=== PATIENT | male | born 1970 | race Caucasian/White ===

== ENCOUNTER 2016-08-17 10:24 | Emergency (ER) | payer BC, MEDICAID ==
[~2016-08-17] VITALS: Ht 165.1 cm; Wt 72.6 kg
[~2016-08-17 10:24] MED LIST: AMOX500C2 PO; NAPR-243 PO; TRM50T PO
--- OUTSIDE RECORDS SUMMARY | 2016-08-17 10:30 | XMS REPORT | Continuity of Care Document ---
Author Author [facility] Organization [facility] Address Unknown Phone Unavailable Allergies Active Description Code Type Severity Reaction Onset Reported/Identified Relationship to Patient Clinical Status Yes NKANo Known Allergies NKA Miscellaneous Allergy Mild N/A 01/19/2009 Medications Problems Date Dx Coded Attending Type Code Diagnosis Diagnosed By 01/19/2009 Ot 521.00 UNSPEC DENTAL CARIES 01/19/2009 Ot 525.9 06/10/2015 Ot 729.5 06/10/2015 NORMA NG MD Ot 786.50 06/10/2015 NORMA NG MD Ot 786.59 06/10/2015 SHAVON HINKLE MD Ot 785.1 06/10/2015 SHAVON HINKLE MD Ot 794.31 06/10/2015 NORMA NG MD Ot 786.50 06/10/2015 NORMA NG MD Ot 786.59 11/26/2015 Ot 729.5 PAIN IN LIMB 11/26/2015 NORMA NG MD Ot 786.50 CHEST PAIN NOS 11/26/2015 NORMA NG MD Ot 786.59 CHEST PAIN NEC 11/26/2015 SHAVON HINKLE MD Ot 785.1 PALPITATIONS 11/26/2015 SHAVON HINKLE MD Ot 794.31 ABNORM ELECTROCARDIOGRAM 11/26/2015 NORMA NG MD Ot 786.50 CHEST PAIN NOS 11/26/2015 NORMA NG MD Ot 786.59 CHEST PAIN NEC Procedures Results Encounters ACCT No. Visit Date/Time Discharge Status Pt. Type Provider Facility Loc./Unit Complaint [id number] 10/25/2013 07:53:00 2013 23:59:59 CLS Outpatient SHAVON HINKLE MD [facility] CARD [id number] 10/02/2013 13:52:00 2013 23:59:59 CLS Outpatient NORMA NG MD [facility] CARD [id number] 06/10/2015 11:41:00 Document Registration [id number] 03/30/2011 11:36:00 Document Registration
--- NOTE | 2016-08-17 10:54 | ED GI ---
General Chief Complaint: Abdominal/GI Problems Stated Complaint: ABD PAIN/KNOT Source of Information: Patient Exam Limitations: No Limitations History of Present Illness Time Seen By Provider: 10:53 Initial Comments To ER with firmness to the right side of the abdomen for 2 months. This began after he thought he strained his groin. This is been painful with stretching for the past week. He saw primary care for this and they believed it to be a strained abdominal muscle. Pain does not radiate anywhere. No nausea or vomiting. No difficulties with urination or bowel changes. Timing/Duration: 1-2 Days Severity/Quality: Moderate Radiation: No Radiation Activities at Onset: None Associated Symptoms: No Fever/Chills, No Nausea/Vomiting Allergies and Home Medications Allergies Coded Allergies: No Known Allergies (Unverified Allergy, Mild, 01/19/09) Home Medications Amoxicillin 500 Mg Capsule #40 1 EACH PO QID FOR INFECTION Prescribed by: KATINA BROWNE on 01/19/09 1147 Naproxen 500 Mg Tablet #30 1 EACH PO TID PRN FOR PAIN Prescribed by: KATINA BROWNE on 01/19/09 1147 Tramadol Hcl 50 Mg Tablet #20 1 TAB PO QID FOR PAIN Prescribed by: KATINA BROWNE on 01/19/09 1147 Review of Systems Constitutional: see HPINo chills, No fever EENTM: No Symptoms Reported Respiratory: No Symptoms Reported Cardiovascular: No Symptoms Reported Gastrointestinal: See HPI Abdominal PainDenies Constipated, Denies Diarrhea, NauseaDenies Vomiting Genitourinary: No Symptoms Reported Musculoskeletal: no symptoms reported Skin: no symptoms reported Psychiatric/Neurological: No Symptoms Reported Endocrine: No Symptoms Reported Hematologic/Lymphatic: No Symptoms Reported Past Kaqwfbu-Hqacox-Hwocry Hx Patient Social History Recent Foreign Travel: No Contact w/Someone Who Travel: No Physical Exam Vital Signs VS - Last 72 Hours, by Label 08/17/16 10:58 Temp 97.5 Pulse 82 Resp 16 B/P 137/112 Pulse Ox 98 O2 Delivery Room Air Capillary Refill : General Appearance: WD/WN no apparent distress HEENT: PERRL/EOMI normal ENT inspection Neck: non-tender full range of motion Respiratory: no respiratory distress no accessory muscle use Gastrointestinal: normal bowel sounds non tender soft Extremities: normal range of motion non-tender Neurologic/Psychiatric: alert normal mood/affect oriented x 3 Skin: normal color warm/dry Focused Exam Lactic Acid Level Laboratory Tests Test 08/17/16 10:50 Alanine Aminotransferase (ALT/SGPT) 17U/L (0-55) Albumin 3.9G/DL (3.2-4.5) Alkaline Phosphatase 103U/L (40-136) Anion Gap 10MMOL/L (5-14) Aspartate Amino Transf (AST/SGOT) 17U/L (5-34) BUN/Creatinine Ratio 14 Blood Urea Nitrogen 12MG/DL (7-18) Calcium Level 9.3MG/DL (8.5-10.1) Carbon Dioxide Level 24MMOL/L (21-32) Chloride Level 105MMOL/L (98-107) Creatinine 0.83MG/DL (0.60-1.30) Estimat Glomerular Filtration Rate > 60 Glucose Level 101MG/DL (70-105) Potassium Level 4.2MMOL/L (3.6-5.0) Sodium Level 139MMOL/L (135-145) Total Bilirubin 0.2MG/DL (0.1-1.0) Total Protein 7.0G/DL (6.4-8.2) Progress/Results/Core Measures Results/Orders Lab Results Laboratory Tests Test 08/17/16 10:50 Range/Units Alanine Aminotransferase (ALT/SGPT) 17 0-55 U/L Albumin 3.9 3.2-4.5 G/DL Alkaline Phosphatase 103 40-136 U/L Anion Gap 10 5-14 MMOL/L Aspartate Amino Transf (AST/SGOT) 17 5-34 U/L BUN/Creatinine Ratio 14 Basophils # (Auto) 0.0 0.0-0.1 10^3/uL Basophils (%) (Auto) 0 0-10 % Blood Urea Nitrogen 12 7-18 MG/DL Calcium Level 9.3 8.5-10.1 MG/DL Carbon Dioxide Level 24 21-32 MMOL/L Chloride Level 105 98-107 MMOL/L Creatinine 0.83 0.60-1.30 MG/DL Eosinophils # (Auto) 0.2 0.0-0.3 10^3/uL Eosinophils (%) (Auto) 2 0-10 % Estimat Glomerular Filtration Rate > 60 Glucose Level 101 70-105 MG/DL Hematocrit 46 40-54 % Hemoglobin 15.5 13.3-17.7 G/DL Lymphocytes # (Auto) 2.3 1.0-4.0 X 10^3 Lymphocytes (%) (Auto) 19 12-44 % Mean Corpuscular Hemoglobin 29 25-34 PG Mean Corpuscular Hemoglobin Concent 34 32-36 G/DL Mean Corpuscular Volume 85 80-99 FL Mean Platelet Volume 9.5 7.4-10.4 FL Monocytes # (Auto) 1.4 H 0.0-1.0 X 10^3 Monocytes (%) (Auto) 12 0-12 % Neutrophils # (Auto) 7.8 1.8-7.8 X 10^3 Neutrophils (%) (Auto) 66 42-75 % Platelet Count 330 130-400 10^3/uL Potassium Level 4.2 3.6-5.0 MMOL/L Red Blood Count 5.37 4.35-5.85 10^6/uL Red Cell Distribution Width 14.1 10.0-14.5 % Sodium Level 139 135-145 MMOL/L Total Bilirubin 0.2 0.1-1.0 MG/DL Total Protein 7.0 6.4-8.2 G/DL White Blood Count 11.7 H 4.3-11.0 10^3/uL My Orders Orders-MUKESH FLOREZ APRN Cbc With Automated Diff (08/17/16 10:52) Saline Lock/Iv-Start (08/17/16 10:52) Comprehensive Metabolic Panel (08/17/16 10:52) Ua Culture If Indicated (08/17/16 10:52) Ct Abdomen/Pelvis W (08/17/16 10:52) Iohexol Injection (Omnipaque 350 Mg/Ml 1 (08/17/16 11:00) Ns (Ivpb) (Sodium Chloride 0.9% Ivpb Bag (08/17/16 11:00) Medications Given in ED Current Medications Medications Dose Ordered Sig/Obdulia Route Start Time Stop Time Status Last Admin Dose Admin Iohexol 100 ml ONCE ONCE IV 08/17/16 11:00 08/17/16 11:01 DC 08/17/16 11:01 100 ML Sodium Chloride 80 ml ONCE ONCE IV 08/17/16 11:00 08/17/16 11:01 DC 08/17/16 11:02 80 ML Vital Signs/I&O Vital Sign - Last 12Hours 08/17/16 10:58 Temp 97.5 Pulse 82 Resp 16 B/P 137/112 Pulse Ox 98 O2 Delivery Room Air Diagnostic Imaging Diagonstic Imaging: CT Comments NAME: MARYLOU MELGOZA [facility] REC#: [id number] PT STATUS: REG ER : 1970 PHYSICIAN: MUKESH FLOREZ CHARGE OPERATOR ADMIT DATE: 08/17/16/ER Draft Date of Exam:08/17/16 CT ABDOMEN/PELVIS W PROCEDURE: CT abdomen and pelvis with contrast. TECHNIQUE: Multiple contiguous axial images were obtained through the abdomen and pelvis after administration of intravenous contrast. INDICATION: Right upper quadrant firmness and pain. COMPARISON: None FINDINGS: Included views of the lung bases are clear. CT abdomen: There is complex solid cystic mass replacing and expanding the right psoas muscle. The mass extends inferiorly into the iliopsoas muscle as well. The mass measures approximately 13.2 x 13.7 cm in axial dimension by 16.6 cm in CC dimension. Centrally, the mass is primarily cystic, but there is some heterogeneous mural soft tissue component. As a result, there is mass effect with displacement of the right colon and right kidney. There is no hydroureteronephrosis or other evidence of urinary tract obstruction. The kidneys otherwise have a normal appearance. Small bowel loops are nondistended. Normal appendix is identified. The adrenal glands, pancreas, spleen, and liver have a normal appearance as well. No abnormal mesenteric or retroperitoneal adenopathy is seen. There is no free fluid or free air. No loculated air-fluid collections are identified. Bony structures show no acute abnormalities. CT pelvis: Urinary bladder is unopacified. There is no loculated fluid collection, free fluid or free air within the pelvis. No abnormal lymph nodes are seen. Bony structures show no acute abnormalities. IMPRESSION: 1. Large complex solid cystic mass expanding and replacing the right psoas muscle. 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 2. Other less likely considerations include a large retroperitoneal hematoma or abscess. Dictated on workstation # [id number] Dict: 08/17/16 1113 Trans: 08/17/16 1127 [id number] Interpreted by: BELTRAN MCNAMARA Electronically signed by: Departure Communication Progress Notes 1200-I spoken with Dr. Sprague, surgeon on-call at [facility]. He agrees to accept the patient. Currently we are waiting on bed assignment. Patient will be transferred by EMS. Patient requests to go home and complete some chores around his house and drive himself up there later this evening however this would not be efficient and would cancel transfer arrangements and I did relay this to the patient. He states he will make some phone calls and let me know what his decision is. I also updated the patient's mother per the patient's request via the patient's phone on our differential diagnoses of this mass. Impression Impression: Primary Impression: Right lower quadrant abdominal mass Disposition: XFER SHT-TRM HOSP Condition: Stable Departure-Patient Inst. Decision time for Depature: 11:33 Referrals: NO,LOCAL PHYSICIAN (PCP/Family) Primary Care Physician MUKESH FLOREZ APRN Aug 17, 2016 10:54
[2016-08-17] MEDS ORDERED: NS 100 ML (IVPB) BAG IV ONE (11:00)
[2016-08-17] MEDS ORDERED: IOHEXOL 350 MG/ML 100 ML (OMNIPAQUE 350) VIAL IV ONE (11:00)
[2016-08-17 11:01] LABS: BASOPHILS % (AUTO) 0 % (0-10); EOSINOPHILS # (AUTO) 0.2 10^3/uL (0.0-0.3); EOSINOPHILS % (AUTO) 2 % (0-10); LYMPHOCYTES # (AUTO) 2.3 X 10^3 (1.0-4.0); LYMPHOCYTES % (AUTO) 19 % (12-44); MEAN CORPUSCULAR HEMOGLOBIN 29 PG (25-34); MEAN CORPUSCULAR HGB CONC 34 G/DL (32-36); MEAN CORPUSCULAR VOLUME 85 FL (80-99); MEAN PLATELET VOLUME 9.5 FL (7.4-10.4); MONOCYTES # (AUTO) 1.4 X 10^3 (0.0-1.0); MONOCYTES % (AUTO) 12 % (0-12); NEUTROPHILS # (AUTO) 7.8 X 10^3 (1.8-7.8); NEUTROPHILS % (AUTO) 66 % (42-75); PLATELET COUNT 330 10^3/uL (130-400); RED BLOOD COUNT 5.37 10^6/uL (4.35-5.85); RED CELL DISTRIBUTION WIDTH 14.1 % (10.0-14.5); WHITE BLOOD COUNT 11.7 10^3/uL (4.3-11.0)
[2016-08-17 11:19] LABS: ALANINE AMINOTRANSFERASE 17 U/L (0-55); ALBUMIN 3.9 G/DL (3.2-4.5); ANION GAP 10 MMOL/L (5-14); ASPARTATE AMINO TRANSFERASE 17 U/L (5-34); BILIRUBIN,TOTAL 0.2 MG/DL (0.1-1.0); BLOOD UREA NITROGEN 12 MG/DL (7-18); BUN/CREATININE RATIO 14; CALCIUM 9.3 MG/DL (8.5-10.1); CARBON DIOXIDE 24 MMOL/L (21-32); CHLORIDE 105 MMOL/L (98-107); CREATININE SERUM 0.83 MG/DL (0.60-1.30); GFR ESTIMATED > 60; GLUCOSE 101 MG/DL (70-105); POTASSIUM 4.2 MMOL/L (3.6-5.0); SODIUM 139 MMOL/L (135-145)
--- NOTE | 2016-08-17 11:28 | Diagnostic Imaging Report ---
PROCEDURE: CT abdomen and pelvis with contrast. TECHNIQUE: Multiple contiguous axial images were obtained through the abdomen and pelvis after administration of intravenous contrast. INDICATION: Right upper quadrant firmness and pain. COMPARISON: None FINDINGS: Included views of the lung bases are clear. CT abdomen: There is complex solid cystic mass replacing and expanding the right psoas muscle. The mass extends inferiorly into the iliopsoas muscle as well. The mass measures approximately 13.2 x 13.7 cm in axial dimension by 16.6 cm in CC dimension. Centrally, the mass is primarily cystic, but there is some heterogeneous mural soft tissue component. As a result, there is mass effect with displacement of the right colon and right kidney. There is no hydroureteronephrosis or other evidence of urinary tract obstruction. The kidneys otherwise have a normal appearance. Small bowel loops are nondistended. Normal appendix is identified. The adrenal glands, pancreas, spleen, and liver have a normal appearance as well. No abnormal mesenteric or retroperitoneal adenopathy is seen. There is no free fluid or free air. No loculated air-fluid collections are identified. Bony structures show no acute abnormalities. CT pelvis: Urinary bladder is unopacified. There is no loculated fluid collection, free fluid or free air within the pelvis. No abnormal lymph nodes are seen. Bony structures show no acute abnormalities. IMPRESSION: 1. Large complex solid cystic mass expanding and replacing the right psoas muscle. 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 Other less likely considerations include a large retroperitoneal hematoma or abscess. Dictated by: Dictated on workstation # [id number]
[2016-08-17 15:30] VITALS: BP 128/90
== END 2016-08-17 15:30 | disposition short-term general hospital (02) ==
LOC: EDUNIT# 10:24 → ER 10:26
DX: R19.03 Right lower quadrant abdominal swelling, mass and lump (principal)
CPT/HCPCS: 36415; 74177; 80053; 85025

== ENCOUNTER 2016-11-07 12:22 | Emergency (ER) | payer MEDICAID ==
[~2016-11-07] VITALS: Ht 175.3 cm; Wt 86.2 kg
--- NOTE | 2016-11-07 12:40 | ED Back Pain ---
General Chief Complaint: Back Problems Stated Complaint: R SIDE SCIATIC NERVE PAIN Nursing Triage Note: C/O LOW BACK AND HIP PAIN Nursing Sepsis Screen: No Definite Risk Source of Information: Patient Exam Limitations: No Limitations History of Present Illness Time Seen by Provider: 12:38 Initial Comments Patient complains of right lower back pain radiating down right leg for the past several days. He has a history of sciatica and this feels similar. 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 He states he is having none of the symptoms experienced then. He denies fevers chills or incontinence. Allergies and Home Medications Allergies Coded Allergies: No Known Allergies (Unverified Allergy, Mild, 01/19/09) Home Medications No Active Prescriptions or Reported Meds Constitutional: no symptoms reported Respiratory: no symptoms reported Cardiovascular: no symptoms reported Gastrointestinal: No abdominal pain Genitourinary: No incontinence Musculoskeletal: back pain All Other Systems Reviewed Negative Unless Noted: Yes Past Jejdeih-Tgyult-Afpreq Hx Patient Social History Alcohol Use: Denies Use Recreational Drug Use: No Smoking Status: Never a Smoker Recent Foreign Travel: No Contact w/Someone Who Travel: No Recent Infectious Disease Expo: No Recent Hopitalizations: No Surgeries HX Surgeries: Yes (right inguinal repair) Surgeries: Abdominal Respiratory Hx Respiratory Disorders: No Cardiovascular Hx Cardiac Disorders: No Neurological Hx Neurological Disorders: No Reproductive System Hx Reproductive Disorders: No Genitourinary Hx Genitourinary Disorders: No Gastrointestinal Hx Gastrointestinal Disorders: No Musculoskeletal Hx Musculoskeletal Disorders: No Endocrine Hx Endocrine Disorders: No HEENT HX ENT Disorders: No Cancer Hx Cancer: No Psychosocial Hx Psychiatric Problems: No Integumentary HX Skin/Integumentary Disorder: No Blood Transfusions Hx Blood Disorders: No Reviewed Nursing Assessment Reviewed/Agree w Nursing PMH: Yes Physical Exam Vital Signs Vital Sign - Last 12Hours 11/07/16 12:25 Temp 98.1 Pulse 76 Resp 18 B/P (MAP) 179/112 Pulse Ox 96 O2 Delivery Room Air Capillary Refill : Less Than 3 Seconds General Appearance: WD/WN, Mild Distress Neck: Supple Cardiovascular: Regular Rate, Rhythm Respiratory: Lungs Clear Gastrointestinal: Soft Back: Normal Inspection Neurologic/Psychiatric: Alert, No Motor/Sensory Deficits, No Sensory Deficit, Other (toe dorsiflexion is 5 out of 5 bilaterally.) Skin: Normal Color, Warm/Dry Progress/Results/Core Measures Results/Orders My Orders Orders - BRIAN JENSEN MD Dexamethasone Injection (Decadron Inject (11/07/16 12:45) Cyclobenzaprine Tablet (Flexeril Tablet) (11/07/16 12:45) Vital Signs/I&O Vital Sign - Last 12Hours 11/07/16 12:25 Temp 98.1 Pulse 76 Resp 18 B/P (MAP) 179/112 Pulse Ox 96 O2 Delivery Room Air Blood Pressure Mean: 134 Departure Impression Impression: Primary Impression: Sciatica of right side Disposition: HOME, SELF-CARE Condition: Stable Departure-Patient Inst. Decision time for Depature: 12:39 Referrals: NO,LOCAL PHYSICIAN (PCP/Family) Primary Care Physician Patient Instructions: Sciatica (DC) Scripts Cyclobenzaprine HCl (Cyclobenzaprine HCl) 10 Mg Tablet 10 MG PO TID Y for SPASMS, #14 TAB Prov: BRIAN JENSEN MD 11/07/16 Diclofenac Sodium (Diclofenac Sodium) 50 Mg Tablet.dr 50 MG PO BID, #10 TAB Prov: BRIAN JENSEN MD 11/07/16 Methylprednisolone (Medrol) 4 Mg Tab.ds.pk 4 MG PO UD, #1 PKG Prov: BRIAN JENSEN MD 11/07/16 BRIAN JENSEN MD Nov 07, 2016 12:40
[2016-11-07] MEDS ORDERED: DICL50TA6 PO (12:43)
[2016-11-07] MEDS ORDERED: CYCL10TA9 PO (12:43)
[2016-11-07] MEDS ORDERED: METH4TAB PO (12:43)
[2016-11-07] MEDS ORDERED: DEXAMETHASONE 4 MG/ML SDV (DECADRON) IM ONE (12:45)
[2016-11-07] MEDS ORDERED: CYCLOBENZAPRINE 10 MG (FLEXERIL) TAB PO SCH (12:45)
[2016-11-07 12:51] VITALS: BP 179/100
== END 2016-11-07 12:49 | disposition home or self-care (01) ==
LOC: EDUNIT# 12:22 → ER 12:24
DX: M54.31 Sciatica, right side (principal)
CPT/HCPCS: 99281

== ENCOUNTER 2016-12-07 04:22 | Emergency (ER) | payer MEDICAID ==
[~2016-12-07] VITALS: Ht 175.3 cm; Wt 85.7 kg
[~2016-12-07 04:22] MED LIST changes: +CYCL10TA9 PO; +DICL50TA6 PO; +METH4TAB PO
[2016-12-07] MEDS ORDERED: OXYC15TA79 (04:41)
[2016-12-07] MEDS ORDERED: DEXA4TAB (04:41)
[2016-12-07] MEDS ORDERED: ONDA8TAB12 (04:41)
[2016-12-07] MEDS ORDERED: PROC-1 PO (04:41)
[2016-12-07] MEDS ORDERED: IOHEXOL 350 MG/ML 100 ML (OMNIPAQUE 350) VIAL IV ONE (05:15)
[2016-12-07] MEDS ORDERED: NS 100 ML (IVPB) BAG IV ONE (05:15)
[2016-12-07 05:16] LABS: BILIRUBIN,URINE NEGATIVE (NEGATIVE); KETONES,URINE NEGATIVE (NEGATIVE); LEUKOCYTE ESTERASE ,URINE 1+ (NEGATIVE); NITRITE,URINE NEGATIVE (NEGATIVE); PH,URINE 5 (5-9); PROTEIN,URINE 2+ (NEGATIVE); UROBILINOGEN,URINE NORMAL (NORMAL)
[2016-12-07 05:17] LABS: BASOPHILS % (AUTO) 0 % (0-10); EOSINOPHILS # (AUTO) 0.1 10^3/uL (0.0-0.3); EOSINOPHILS % (AUTO) 1 % (0-10); LYMPHOCYTES % (AUTO) 9 % (12-44); MEAN CORPUSCULAR HEMOGLOBIN 27 PG (25-34); MEAN CORPUSCULAR HGB CONC 34 G/DL (32-36); MEAN CORPUSCULAR VOLUME 80 FL (80-99); MONOCYTES # (AUTO) 0.1 X 10^3 (0.0-1.0); MONOCYTES % (AUTO) 1 % (0-12); NEUTROPHILS # (AUTO) 10.2 X 10^3 (1.8-7.8); NEUTROPHILS % (AUTO) 89 % (42-75); PLATELET COUNT 332 10^3/uL (130-400); RED CELL DISTRIBUTION WIDTH 13.3 % (10.0-14.5); WHITE BLOOD COUNT 11.4 10^3/uL (4.3-11.0)
[2016-12-07 05:25] LABS: SQUAMOUS EPITHELIAL CELL,UR 0-2 /HPF
[2016-12-07 05:25] LABS: PROTHROMBIN TIME PATIENT 13.3 SEC (12.2-14.7)
--- NOTE | 2016-12-07 05:31 | ED Abdominal Pain ---
General Chief Complaint: Abdominal/GI Problems Stated Complaint: ABD PAIN Nursing Triage Note: INTERMITTANT RUQ ABDOMINAL PAIN X1 WEEK Sepsis Screen: No Definite Risk Source of Information: Patient, Family (MOM--JUST MOVED HERE FROM [place] 3 DAYS AGO TO STAY WITH HIM) History of Present Illness Time Seen By Provider: 04:50 Initial Comments PT ARRIVES VIA POV FROM HOME PT WAS DX WITH SARCOMA AND HAD SURGERY ON 08/23/16 AT --HAD RIGHT NEPHRECTOMY , PSOAS MUSCLE REMOVED, APPY, LYMPH NODES REMOVED PT HAD CT SCAN DONE 2 WEEKS AGO WHICH SHOWED RECURRENCE AND METS TO LIVER "AND OTHER PLACES" PT HAD CHEMO ( HIS FIRST AND ONLY CHEMO ) LAST Tuesday11/30/16 AND IS TO HAVE CHEMO AGAIN TOMORROW AT , AND IS ALSO TO SEE SURGEON TOMORROW WELL. PT STATES HE HAD OPTED NOT TO DO CHEMO OR RADIATION INITIALLY, UNTIL IT WAS DISCOVERED THAT IT HAD RECURRED. PT HAS HAD RIGHT SIDED ABDOMINAL PAIN FOR SEVERAL MONTHS DUE TO THIS TUMOR, WAS BETTER AFTER THE SURGERY, BUT FOR THE LAST WEEK HAS HAD INCREASING PAIN ON THE RIGHT SIDE, AND HAVING SEVERE PAIN UNDER RIGHT RIBS, AND PAIN WITH BENDING TO THE RIGHT AND WITH TAKING A DEEP BREATH TONIGHT, THE PAIN WAS SEVERE, AND NOT RELIEVED WITH OXYCODONE--LAST DOSE WAS AT MIDNIGHT-- 15 MG. STATES HE TAKES IS EVERY 4 HOURS NEEDED NO NAUSEA/VOMITING, BUT HAS NOT HAD AN APPETITE--ONLY EATING ONE SANDWICH A DAY HAS ONGOING CONSTIPATION--LAST BM WAS A COUPLE OF DAYS AGO, AND HAS TO STRAIN AND ONLY PASSING HARD, SMALL TINO NO FEVER NO URINARY SYMPTOMS NO PCP ANYWHERE ONLY GOES TO ONCOLOGY AT Allergies and Home Medications Allergies Coded Allergies: NKANo Known Allergies (Unverified Allergy, Mild, 01/19/09) Home Medications Dexamethasone 4 Mg Tablet, #36 (Reported) Hydrocodone/Acetaminophen 1 Each Tablet, 1 EACH PO Q4H, #20 Prescribed by: KATINA BROWNE on 12/07/16 0647 Ondansetron HCl 8 Mg Tablet, #30 (Reported) Oxycodone HCl 15 Mg Tablet, #180 (Reported) Prochlorperazine Maleate 10 Mg Tablet, Unknown Dose PO, (Reported) Review of Systems Constitutional: other (DECREASED APPETITE) EENTM: No Symptoms Reported Respiratory: Denies Cough, Denies Orthopnea, Denies Shortness of Air, Other ( HURTS UNDER RIGHT RIB CAGE TO TAKE A DEEP BREATH) Cardiovascular: See HPI Gastrointestinal: See HPI, Abdominal Pain, Constipated, Denies Diarrhea, Denies Nausea, Poor Appetite, Denies Poor Fluid Intake, Denies Vomiting Genitourinary: No Symptoms Reported Musculoskeletal: see HPI Skin: no symptoms reported Psychiatric/Neurological: No Symptoms Reported Endocrine: No Symptoms Reported Hematologic/Lymphatic: See HPI Past Osvvpnb-Wwoulc-Qeseiy Hx Patient Social History Alcohol Use: Denies Use Recreational Drug Use: No Smoking Status: Never a Smoker 2nd Hand Smoke Exposure: No Recent Foreign Travel: No Contact w/Someone Who Travel: No Recent Infectious Disease Expo: No Recent Hopitalizations: No Immunizations Up To Date Tetanus Booster (TDap): Less than 5yrs Seasonal Allergies Seasonal Allergies: Yes Surgeries HX Surgeries: Yes (RIGHT NEPHRECTOMY/APPY/PSOAS MUSCLE REMOVED AND LYMPH NODES REMOVED AT 08/23/16 FOR SARCOMA. PORT RIGHT CHEST) Surgeries: Abdominal, Appendectomy, Nephrectomy Respiratory Hx Respiratory Disorders: No Cardiovascular Hx Cardiac Disorders: No Neurological Hx Neurological Disorders: No Reproductive System Hx Reproductive Disorders: No Genitourinary Hx 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) Gastrointestinal Hx Gastrointestinal Disorders: Yes (SARCOMA IN ABDOMEN) Musculoskeletal Hx 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) Endocrine Hx Endocrine Disorders: No HEENT HX ENT Disorders: No Cancer Hx Cancer: Yes (SARCOMA--RIGHT PSOAS, RIGHT KIDNEY, LIVER, LYMPH NODES) Psychosocial Hx Psychiatric Problems: No Integumentary HX Skin/Integumentary Disorder: No Blood Transfusions Hx Blood Disorders: No Physical Exam Vital Signs VS - Last 72 Hours, by Label 12/07/16 12/07/16 04:41 06:53 Temp 96.4 96.4 Pulse 120 88 Resp 18 18 B/P (MAP) 115/99 Pulse Ox 97 98 O2 Delivery Room Air Room Air Capillary Refill : Less Than 3 Seconds General Appearance: no apparent distress (BUT LOOKS UNCOMFORTABLE/IN PAIN -- TAKING SHORT, SHALLOW BREATHS), other (MOVES AND CHANGES POSITIONS SLOWLY DUE TO PAIN ), thin HEENT: PERRL/EOMI Neck: normal inspection Respiratory: normal breath sounds, no respiratory distress, no accessory muscle use Cardiovascular: regular rate, rhythm, no edema, no JVD, no murmur Gastrointestinal: abnormal bowel sounds (DECREASED), tenderness (DIFFUSE RIGHT SIDED TENDERNESS, AND SUPRAPUBIC TENDERNESS), mass (VERY LARGE, FIRM MASS TO MID AND LOWER RIGHT ABDOMEN AND SUPRAPUBIC AREA) Extremities: normal inspection, no pedal edema, normal capillary refill Back: no vertebral tenderness, CVA tenderness (R) (WITH FULLNESS/MASS IN RIGHT FLANK AREA) Neurologic/Psychiatric: cfa II-XII nml as tested, no motor/sensory deficits, alert, oriented x 3 Skin: warm/dry, pallor, other (SALLOW) Progress/Results/Core Measures Results/Orders Lab Results Laboratory Tests Test 12/07/16 05:05 12/07/16 05:10 Range/Units White Blood Count 11.4 H 4.3-11.0 10^3/uL Red Blood Count 5.30 4.35-5.85 10^6/uL Hemoglobin 14.5 13.3-17.7 G/DL Hematocrit 43 40-54 % Mean Corpuscular Volume 80 80-99 FL Mean Corpuscular Hemoglobin 27 25-34 PG Mean Corpuscular Hemoglobin Concent 34 32-36 G/DL Red Cell Distribution Width 13.3 10.0-14.5 % Platelet Count 332 130-400 10^3/uL Mean Platelet Volume 9.0 7.4-10.4 FL Neutrophils (%) (Auto) 89 H 42-75 % Lymphocytes (%) (Auto) 9 L 12-44 % Monocytes (%) (Auto) 1 0-12 % Eosinophils (%) (Auto) 1 0-10 % Basophils (%) (Auto) 0 0-10 % Neutrophils # (Auto) 10.2 H 1.8-7.8 X 10^3 Lymphocytes # (Auto) 1.0 1.0-4.0 X 10^3 Monocytes # (Auto) 0.1 0.0-1.0 X 10^3 Eosinophils # (Auto) 0.1 0.0-0.3 10^3/uL Basophils # (Auto) 0.0 0.0-0.1 10^3/uL Prothrombin Time 13.3 12.2-14.7 SEC INR Comment 1.0 0.8-1.4 Activated Partial Thromboplast Time 28 24-35 SEC Sodium Level 133 L 135-145 MMOL/L Potassium Level 4.6 3.6-5.0 MMOL/L Chloride Level 96 L 98-107 MMOL/L Carbon Dioxide Level 26 21-32 MMOL/L Anion Gap 11 5-14 MMOL/L Blood Urea Nitrogen 20 H 7-18 MG/DL Creatinine 1.08 0.60-1.30 MG/DL Estimat Glomerular Filtration Rate > 60 BUN/Creatinine Ratio 19 Glucose Level 134 H 70-105 MG/DL Calcium Level 9.7 8.5-10.1 MG/DL Magnesium Level 2.0 1.8-2.4 MG/DL Total Bilirubin 0.5 0.1-1.0 MG/DL Aspartate Amino Transf (AST/SGOT) 14 5-34 U/L Alanine Aminotransferase (ALT/SGPT) 14 0-55 U/L Alkaline Phosphatase 111 40-136 U/L Total Protein 7.3 6.4-8.2 GM/DL Albumin 3.6 3.2-4.5 GM/DL Amylase Level 18 L 25-125 U/L Lipase < 4 L 8-78 U/L Urine Color YELLOW Urine Clarity CLEAR Urine pH 5 5-9 Urine Specific [place] 1.020 1.016-1.022 Urine Protein 2+ H NEGATIVE Urine Glucose (UA) NEGATIVE NEGATIVE Urine Ketones NEGATIVE NEGATIVE Urine Nitrite NEGATIVE NEGATIVE Urine Bilirubin NEGATIVE NEGATIVE Urine Urobilinogen NORMAL NORMAL MG/DL Urine Leukocyte Esterase 1+ H NEGATIVE Urine RBC (Auto) 1+ H NEGATIVE Urine RBC RARE /HPF Urine WBC NONE /HPF Urine Squamous Epithelial Cells 0-2 /HPF Urine Crystals NONE /LPF Urine Bacteria NEGATIVE /HPF Urine Casts NONE /LPF Urine Mucus NEGATIVE /LPF Urine Culture Indicated NO My Orders Orders - KATINA BROWNE DO Saline Lock/Iv-Start (12/07/16 04:59) Monitor-Rhythm Ecg Trace Only (12/07/16 04:59) Amylase (12/07/16 04:59) Cbc With Automated Diff (12/07/16 04:59) Comprehensive Metabolic Panel (12/07/16 04:59) Lipase (12/07/16 04:59) Magnesium (12/07/16 04:59) Protime With Inr (12/07/16 04:59) Partial Thromboplastin Time (12/07/16 04:59) Ua Culture If Indicated (12/07/16 04:59) Acute Abd Series (12/07/16 04:59) Saline Lock/Iv-Start (12/07/16 04:59) Iohexol Injection (Omnipaque 350 Mg/Ml 1 (12/07/16 05:15) Ns (Ivpb) (Sodium Chloride 0.9% Ivpb Bag (12/07/16 05:15) Fentanyl Injection (Sublimaze Injection (12/07/16 05:34) Ct Chest/Abdomen/Pelvis Wo (12/07/16 04:59) Morphine Injection (Morphine Injection (12/07/16 06:37) Vital Signs/I&O Vital Sign - Last 12Hours 12/07/16 12/07/16 04:41 06:53 Temp 96.4 96.4 Pulse 120 88 Resp 18 18 B/P (MAP) 115/99 Pulse Ox 97 98 O2 Delivery Room Air Room Air Blood Pressure Mean: 104 Progress Note : Progress Note PAIN EASED SOME AT DISMISSAL Diagnostic Imaging Comments CT CHEST / ABDOMEN /PELVIS--LARGE MASS IN RIGHT RETROPERITONEUM WITH POORLY DIFFERENTIATED BORDER WITH CYSTIC AND SOLID COMPONENTS, EXTENDING FROM LEVEL OF DIAPHRAGM ALL THE WAY TO RIGHT ACETABULUM--14 X 15 CM--METASTASIS VS RECURRENCE , WITH LOCAL INVASION OF RIGHT PSOAS AND ILIOPSOAS MUSCLES AND INFERIOR BORDER OF RIGHT LOBE OF LIVER--PER [facility] VIA FAX @ [phone] Reviewed: Reviewed by Me Departure Impression Impression: 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 Referrals: NO,LOCAL PHYSICIAN (PCP/Family) Primary Care Physician Patient Instructions: Cancer Pain Syndromes (DC), Soft Tissue Sarcoma, Adult ( DC) Add. Discharge Instructions: CONTINUE YOUR REGULAR MEDICATIONS PRESCRIBED KEEP YOUR APPOINTMENTS AT THIS WEEK TAKE MIRALAX DAILY FOR CONSTIPATION All discharge instructions reviewed with patient and/or family. Voiced understanding. Scripts Hydrocodone/Acetaminophen (Hydrocodon-Acetaminophn 10-325) 1 Each Tablet 1 EACH PO Q4H, #20 TAB Prov: KATINA BROWNE DO 12/07/16 KATINA BROWNE DO Dec 07, 2016 5:31 am
[2016-12-07] MEDS ORDERED: fentaNYL INJECTION 100 MCG/2 ML AMP IVP STA (05:34)
[2016-12-07 05:37] LABS: ALANINE AMINOTRANSFERASE 14 U/L (0-55); ALBUMIN 3.6 GM/DL (3.2-4.5); AMYLASE 18 U/L (25-125); ANION GAP 11 MMOL/L (5-14); ASPARTATE AMINO TRANSFERASE 14 U/L (5-34); BILIRUBIN,TOTAL 0.5 MG/DL (0.1-1.0); BLOOD UREA NITROGEN 20 MG/DL (7-18); BUN/CREATININE RATIO 19; CALCIUM 9.7 MG/DL (8.5-10.1); CARBON DIOXIDE 26 MMOL/L (21-32); CHLORIDE 96 MMOL/L (98-107); CREATININE SERUM 1.08 MG/DL (0.60-1.30); GFR ESTIMATED > 60; GLUCOSE 134 MG/DL (70-105); LIPASE < 4 U/L (8-78); POTASSIUM 4.6 MMOL/L (3.6-5.0); SODIUM 133 MMOL/L (135-145); TOTAL PROTEIN 7.3 GM/DL (6.4-8.2)
[2016-12-07] MEDS ORDERED: morphine INJ 10 MG/ML 1ML (SYR OR VIAL) IVP STA (06:37)
[2016-12-07] MEDS ORDERED: HYDR-3820 PO (06:47)
[2016-12-07 06:53] VITALS: BP 128/71
--- NOTE | 2016-12-07 07:11 | Diagnostic Imaging Report ---
PROCEDURE: CT chest, abdomen, and pelvis without contrast. TECHNIQUE: Multiple contiguous axial images were obtained through the chest, abdomen, and pelvis without the use of intravenous contrast. INDICATION: Stabbing pain under the right ribs for 24 hours. Dyspnea. History of sarcoma On CT chest, there is basilar discoid atelectasis with no mass or infiltrate seen. There is no effusion or pneumothorax. There is no mediastinal mass or adenopathy. No bony destructive lesions are seen. CT abdomen and pelvis: There is a large multiloculated complex cystic mass in the retroperitoneum on the right with loss of borders between this mass and the right psoas muscle. This has an AP and transverse dimension of approximately 10 x 10 cm but there is a cephalocaudad extent of approximately 25 cm as this extends from the subhepatic space into the pelvis with involvement of the right psoas muscle. This mass has increased in size since the 08/17/16 study. The right kidney has been removed since the prior study. No intrinsic abnormality of the liver is seen. The spleen, pancreas and left adrenal are normal. The left kidney is normal. The right kidney is absent. I believe the right kidney is normal. There is some extrinsic mass effect from the retroperitoneal mass. No acute bowel abnormality is seen. There is no free intraperitoneal air or fluid. There are no bony abnormalities. IMPRESSION: There is a large complex cystic mass on the right which has increased in size. With the history of sarcoma this most likely represents neoplasm. This could have a component of old hemorrhage. This may or may not be infected but no air is seen within this. No acute abnormality in the chest is seen other than discoid atelectasis. Dictated by: Dictated on workstation # [id number]
--- NOTE | 2016-12-07 07:15 | Diagnostic Imaging Report ---
INDICATION: Abdominal pain Supine and upright views were obtained. The upright chest shows basilar discoid atelectasis on the right. No mass or infiltrate is seen. There is no effusion. Heart size is normal. Supine and upright views of the abdomen shows a normal bowel gas pattern. There are changes of prior right nephrectomy. There is no free air. There is no calculus evident. There is no bony abnormality. IMPRESSION: Right basilar discoid atelectasis, otherwise no acute abnormality is seen. Dictated by: Dictated on workstation # [id number]
--- OUTSIDE RECORDS SUMMARY | 2016-12-08 15:40 | XMS REPORT | Continuity of Care Document ---
Author Author [facility] Organization [facility] Address Unknown Phone Unavailable Care Team Providers Care Java Designer Name Role Phone No Pcp, Na PCP Unavailable Source Comments Some departments are not documenting in the electronic medical record. If you do not see the information that you expected, contact Release of Information in the Health Information Management department at [phone] for further assistance in locating additional records.[facility] Active Allergies and Adverse Reactions No Known Allergies Current Medications Prescription Sig. Disp. Refills Start End Date Status Date IBUPROFEN (ADVIL PO) Take 3-4 Tabs by mouth as Active Needed. oxyCODONE (ROXICODONE, Take 1 Tab by mouth every 180 Tab 0 11/25/19 Active OXY-IR) 15 mg tablet 4 hours as needed for 17 Pain gabapentin (NEURONTIN) Take 1 Cap by mouth every 90 Cap 3 11/25/19 Active 300 mg capsule 8 hours. 17 dexamethasone (DECADRON) Take 2 Tabs by mouth 36 Tab 5 11/25/19 Active 4 mg tablet daily. On Days 2-4 of 17 each cycle. ondansetron (ZOFRAN) 8 mg Take 1 Tab by mouth every 30 Tab 5 11/25/19 Active tablet 8 hours as needed (nausea 17 and vomiting). prochlorperazine maleate Take 1 Tab by mouth every 30 Tab 2 11/27/19 Active (COMPAZINE) 10 mg tablet 6 hours as needed. 17 lidocaine/prilocaine apply 1 hour prior to 30 g 1 11/27/19 Active (EMLA) 2.5/2.5 % topical port access and cover 17 cream montelukast (SINGULAIR) Take 1 Tab by mouth 30 Tab 3 12/03/19 Active 10 mg tablet daily. 17 oxyCODONE (ROXICODONE, Take 1-2 Tabs by mouth 60 Tab 0 08/29/19 Discontin OXY-IR) 5 mg tablet every 4 hours as needed 17 17 ued loratadine (CLARITIN) 10 Take 1 Tab by mouth every 30 Tab 3 12/03/19 12/03/19 Discontin mg tablet morning. 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 Pt reports that he had fallen down the stairs 2 months previously, felt he strained his groin, and had pain of his RLE and R flank since then. Noticed R sided abdominal mass that he felt has been getting bigger since that time as well. Denies n/v, fevers, chills, weight loss. Since it did not get better, he presented to OSH ED, where CT was ordered that showed large complex, cystic mass replacing and expanding the R psoas muscle. Mass measured approx 13.2 x13.7x 16.6cm. He was taken for surgery on 08/23/16, after a staging CT chest showed no obvious thoracic mets. Path from surgery was c/w 17.8cm deep RP high grade UPS with [id number] unoriented margins. Mitotic rate was 75/10HPF. FISH for MDM2 was negative. Ki-67 stain was 40-80%. No adjuvant therapy was chosen initially, as it was unlikely that chemo then would be beneficial. Since the surgery 3 mos ago, his RLE never really got better. Over last four weeks or so, he has had some really bad days, where he has literally felt like he has had to drag his RLE around in terms of pain and discomfort. 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 Sure enough, CT 11/24/16 after just ~3 months after surgery showed large recurrent RP mass, with development of peritoneal metastatic disease, but no evidence of thoracic metastatic disease. In with sister, as there is some conflict ongoing at home with his . His mother plans on moving in from [place] to help relieve some stress/pressure off family. 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 Because of the quick relapse, I am not excited about taking him back for another major abdominal surgery. I think an attempt at systemic chemotherapy is warranted now that we have measurable disease to monitor. I would like to start with the combo of doxo-olaratumab, after having echo completed and port placed. I am not relinquishing the thought of surgery in the future, but as of now, I think we would end up in the same situation quickly if we pursued another surgery now. Discussed with the patient and all questions fully answered. He will call me if any problems arise. He is not interested in having any more children. The likelihood of curable disease is less and less likely now, and as discussed, this is his life-altering diagnosis. He is obviously overwhelmed today, but will discuss end-of-life issues and resuscitation status in the near future. Resolved Problems Problem Noted Date Resolved Date Retroperitoneal mass 08/17/2016 09/08/2016 Most Recent Encounters Date Type Specialty Providers Description 12/08/2016 Telephone Oncology Omi Rees Recent Hospitalization MD Rm (Follow-up) - ER visit [facility] 12/08/2016 Ancillary Radiology Outpatient, Radiologist Diagnosis unknown Orders (Primary Dx) 12/07/2016 Hospital Radiology Arrived Encounter 12/07/2016 Hospital Radiology Arrived Encounter 12/06/2016 Telephone Oncology Omi Rees Appointment MD Rm 12/06/2016 Telephone General Surgery Aicha Adames Appointment 12/02/2016 Orders Only Oncology Omi Rees MD 12/02/2016 Telephone Omi Peter Medication Follow-up MD Rm 12/01/2016 Hospital Oncology Omi Rees Arrived Encounter MD Rm 11/30/2016 Hospital Radiology Omi Rees Encounter MD Chaka Abdalla Kit Fahrbach, Thomas, MD 11/29/2016 Hospital Cardiology Omi Rees Encounter MD Rm 11/29/2016 Office Visit Anesthesia Pain LazaroedDale MD Pleomorphic cell sarcoma (HCC) (Primary Dx); Cancer related pain; Neuropathic pain 11/29/2016 Documentation Oncology Lissette Franklin 11/26/2016 Office Visit Oncology Melania He APRN Pleomorphic cell sarcoma (HCC) (Primary Dx) 11/26/2016 Hospital Oncology Melania He APRN Encounter 11/25/2016 Documentation Oncology Lissette Franklin 11/24/2016 Office Visit Oncology Omi Rees Pleomorphic cell sarcoma MD Rm (HCC) (Primary Dx) 11/24/2016 Hospital Radiology Omi Rees Encounter MD Rm 11/24/2016 Documentation Oncology Lissette Franklin 11/24/2016 Orders Only Oncology Sherin Booker, [facility] 11/24/2016 Screening Form 09/28/2016 Documentation Oncology Lissette Franklin 09/08/2016 Office Visit Oncology Logan Hadley MD Pleomorphic cell sarcoma (HCC) (Primary Dx) 09/08/2016 Office Visit Oncology Omi Rees Retroperitoneal sarcoma MD Rm (HCC) (Primary Dx); 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 Hospital Radiology Encounter 09/08/2016 Hospital Radiology Encounter 09/08/2016 Ancillary Radiology Outpatient, Radiologist Diagnosis unknown Orders (Primary Dx) Social History Tobacco Use Types Packs/Day Years Used Date Never Smoker Smokeless Tobacco: Never Used Alcohol Use Drinks/Week oz/Week Comments No Last Filed Vital Signs Vital Sign Reading Time Taken Blood Pressure 121/60 12/01/2016 2:40 PM CDT Pulse 79 12/01/2016 2:40 PM CDT Temperature 36.9 C (98.5 F) 12/01/2016 10:17 AM CDT Respiratory Rate 18 12/01/2016 10:17 AM CDT Height 1.753 m (5' 9.02") 12/01/2016 10:17 AM CDT Weight 84.823 kg (187 lb) 12/01/2016 10:17 AM CDT Body Mass Index 27.6 12/01/2016 10:17 AM CDT Oxygen Saturation 97% 12/01/2016 2:40 PM CDT Plan of Care Health Maintenance Due Date Last Done Comments Physical (Comprehensive) 1977 Exam Pertussis Vaccine 1981 Tetanus Vaccine 10/07/1987 Influenza Vaccine 02/04/2017 Results from Last 3 Months * GENERAL RAD ABDOMEN EXTERNAL IMAGING (12/07/2016 12:15 AM) Narrative This order has been auto finalized and does not contain a result. * CT CHEST/ABD/PEL EXTERNAL IMAGING (12/07/2016) Narrative This order has been auto finalized and does not contain a result. * BHUM[facility]A PATH MOLEC REF LAB SCAN (12/06/2016 10:37 AM) Narrative Ordered by an unspecified provider. * IR CENTRAL VENOUS CATHETER (11/30/2016 8:50 AM) Impressions IMPRESSION:Successful image guided placement of a right internal jugular vein chest port as described above. I, Deangelo Green M.D, the attending radiologist, was present for the critical and cole portions of the procedure with a midlevel, resident, and/or fellow participating.Overlapping portions were non cole and I was immediately available.I interpret the critical and cole portion of this procedure to have been needle access. @TT Approved by Omi Keith M.D. on 11/30/2016 12:17 PM By my electronic signature, I attest that I have personally reviewed the images for this examination and formulated the interpretations and opinions expressed in this report Finalized by Deangelo Green M.D. on 11/30/2016 12:57 PM. Dictated by Omi Keith M.D. on 11/30/2016 12:17 PM. Narrative CHEST PORT PLACEMENT WITH ULTRASOUND AND FLUORO GUIDANCE DATE: 11/30/2016 CLINICAL INDICATION: Pleomorphic cell sarcoma, chemotherapy EXECUTIVE DIRECTOR CONTRACT SHOP:Omi Keith M.D. and Deangelo Green M.D. SEDATION: I was personally responsible for the administration of moderate sedation services during the procedure performed, and I confirm requirements described in CPT section on moderate sedation were followed, including the use of an independent trained observer who had no other duties during the procedure. The total supervised sedation time was 21 minutes.See nursing log for complete details; the drugs utilized were:3 mg IV Versed; 100 mcg IV Fentanyl. CATHETER: 24.5 cm 8 [place] power port PUNCTURE SITE: Right internal jugular vein FLUOROSCOPY EXPOSURE:19 mGy TECHNIQUE: The risks, benefits, and alternatives to the procedure and sedation were explained, and written informed consent obtained. With patient in the supine position, the patient's right neck and upper chest were prepped and draped in the usual sterile fashion. Ultrasound of the right internal jugular vein was performed demonstrating patency.The skin and subcutaneous tissues overlying the vein were infiltrated with 2% Lidocaine without epinephrine. Under ultrasound guidance, the right internal jugular vein was accessed with a micropuncture needle. Needle entering the vessel was documented and an ultrasound imaged was saved and sent to PACS.A 0.018 wire was advanced through the needle into the vein. The needle was exchanged for a 5 [place] coaxial dilator. Attention was turned to the creation of a subcutaneous pocket and tunnel.2% Lidocaine with epinephrine were infiltrated on the chest wall along a tract caudal and lateral to the initial venotomy site.An incision was made and a pocket was bluntly dissected. The pocket was copiously irrigated with sterile normal saline.The tunneling tool was passed and the catheter was pulled through the initial venotomy site. The catheter was cut to length and attached to the port reservoir. The introducer of the coaxial catheter was removed and a 0.035" Amplatz wire was passed into the IVC. The micropuncture sheath was exchanged for a peel a way. The catheter was advanced through the sheath and positioned centrally using fluoroscopy.The sheath was removed. The venotomy site was closed with Dermabond.The pocket was closed with three interrupted deep sutures with 2-0 Monocryl followed by Dermabond. The patient tolerated the procedure well and remained in stable condition throughout the stay in the angiography suite.The catheter port was flushed, heparinized, and a sterile dressing was applied. FINDINGS: 1. Patent right internal jugular vein by ultrasound.Needle entry documented , and an ultrasound image was saved to PACS. 2. Catheter tip is appropriately placed in the proximal right atrium. Procedure Note Interface, Radiant Results - [facility] Nov 30, 2016 1:01 PM CDT CHEST PORT PLACEMENT WITH ULTRASOUND AND FLUORO GUIDANCE DATE: 11/30/2016 CLINICAL INDICATION: Pleomorphic cell sarcoma, chemotherapy EXECUTIVE DIRECTOR CONTRACT SHOP: Omi Keith M.D. and Deangelo Green M.D. SEDATION: I was personally responsible for the administration of moderate sedation services during the procedure performed, and I confirm requirements described in CPT section on moderate sedation were followed, including the use of an independent trained observer who had no other duties during the procedure. The total supervised sedation time was 21 minutes. See nursing log for complete details; the drugs utilized were: 3 mg IV Versed; 100 mcg IV Fentanyl. CATHETER: 24.5 cm 8 [place] power port PUNCTURE SITE: Right internal jugular vein FLUOROSCOPY EXPOSURE: 19 mGy TECHNIQUE: The risks, benefits, and alternatives to the procedure and sedation were explained, and written informed consent obtained. With patient in the supine position, the patient's right neck and upper chest were prepped and draped in the usual sterile fashion. Ultrasound of the right internal jugular vein was performed demonstrating patency. The skin and subcutaneous tissues overlying the vein were infiltrated with 2% Lidocaine without epinephrine. Under ultrasound guidance, the right internal jugular vein was accessed with a micropuncture needle. Needle entering the vessel was documented and an ultrasound imaged was saved and sent to PACS. A 0.018 wire was advanced through the needle into the vein. The needle was exchanged for a 5 [place] coaxial dilator. Attention was turned to the creation of a subcutaneous pocket and tunnel. 2% Lidocaine with epinephrine were infiltrated on the chest wall along a tract caudal and lateral to the initial venotomy site. An incision was made and a pocket was bluntly dissected. The pocket was copiously irrigated with sterile normal saline. The tunneling tool was passed and the catheter was pulled through the initial venotomy site. The catheter was cut to length and attached to the port reservoir. The introducer of the coaxial catheter was removed and a 0.035" Amplatz wire was passed into the IVC. The micropuncture sheath was exchanged for a peel a way. The catheter was advanced through the sheath and positioned centrally using fluoroscopy. The sheath was removed. The venotomy site was closed with Dermabond. The pocket was closed with three interrupted deep sutures with 2-0 Monocryl followed by Dermabond. The patient tolerated the procedure well and remained in stable condition throughout the stay in the angiography suite. The catheter port was flushed, heparinized, and a sterile dressing was applied. FINDINGS: 1. Patent right internal jugular vein by ultrasound. Needle entry documented, and an ultrasound image was saved to PACS. 2. Catheter tip is appropriately placed in the proximal right atrium. IMPRESSION IMPRESSION: Successful image guided placement of a right internal jugular vein chest port as described above. IDeangelo M.D, the attending radiologist, was present for the critical and cole portions of the procedure with a midlevel, resident, and/or fellow participating. Overlapping portions were non cole and I was immediately available. I interpret the critical and cole portion of this procedure to have been needle access. @TT Approved by Omi Keith M.D. on 11/30/2016 12:17 PM By my electronic signature, I attest that I have personally reviewed the images for this examination and formulated the interpretations and opinions expressed in this report Finalized by Deangelo Green M.D. on 11/30/2016 12:57 PM. Dictated by Omi Keith M.D. on 11/30/2016 12:17 PM. * 2-D ECHOCARDIOGRAM ONLY (11/29/2016 3:52 PM) Component Value Range BSA 2.04 m2 ECHO EF 60 % LVIDD 4.4 4.2-5.9 cm LVIDS 2.4 cm IVS 0.9 0.6-1.0 cm PW 1.0 0.6-1.0 cm FS 45.45 28-44 % EF 77.27 % LA size 3.5 3.0-4.0 cm Right Ventricular Basal 3.6 cm (2.4-4.2) Diameter Right Atrial Area 13.3 cm2 (<=18) Right Ventricular Mid 2.8 cm (2.0-3.5) Diameter Right Atrial Major 4.3 cm (<=5.3) Dimension Right Ventricular Long 7.4 cm (5.6-8.6) Diameter Sinus 41.1 2.1-3.5 cm Narrative Rest Echo: 1. Normal left ventricular systolic function with an EF ~ 60% 2. No regional wall motion abnormalities. 3. No structural valve abnormalities 4. Normal LV wall thickness 5. Normal aortic root dimension 6. No pericardial effusion 7. Normal chamber dimensions 8. Normal global strain pattern * COMPREHENSIVE METABOLIC PANEL (11/26/2016 1:24 PM) Component Value Range Sodium 134 (L) 137-147 MMOL/L Potassium 4.0 3.5-5.1 MMOL/L Chloride 98 98-110 MMOL/L Glucose 143 (H) 70-100 MG/DL Blood Urea Nitrogen 15 7-25 MG/DL Creatinine 1.41 (H) 0.4-1.24 MG/DL Calcium 9.5 8.5-10.6 MG/DL Total Protein 7.0 6.0-8.0 G/DL Total Bilirubin 0.5 0.3-1.2 MG/DL Albumin 3.7 3.5-5.0 G/DL Alk Phosphatase 92 25-110 U/L AST (SGOT) 16 7-40 U/L CO2 29 21-30 MMOL/L ALT (SGPT) 9 7-56 U/L Anion Gap 7 3-12 eGFR Non 54 (L)Comment: >60 mL/min The eGFR is not validated for use in drug dosing adjustments. Continue to use estimated creatinine clearance per dosing reference text. Please contact the Clinical Pharmacist for questions. eGFR >60Comment: >60 mL/min The eGFR is not validated for use in drug dosing adjustments. Continue to use estimated creatinine clearance per dosing reference text. Please contact the Clinical Pharmacist for questions. Specimen Blood * CBC AND DIFF (11/26/2016 1:24 PM) Component Value Range White Blood Cells 15.3 (H) 4.5-11.0 K/UL RBC 5.20 4.4-5.5 M/UL Hemoglobin 14.6 13.5-16.5 GM/DL Hematocrit 44.3 40-50 % MCV 85.2 80-100 FL MCH 28.0 26-34 PG MCHC 32.9 32.0-36.0 G/DL RDW 14.4 11-15 % Platelet Count 263 150-400 K/UL MPV 7.6 7-11 FL Neutrophils 79 (H) 41-77 % Lymphocytes 8 (L) 24-44 % Monocytes 11 4-12 % Eosinophils 1 0-5 % Basophils 1 0-2 % Absolute Neutrophil Count 12.10 (H) 1.8-7.0 K/UL Absolute Lymph Count 1.20 1.0-4.8 K/UL Absolute Monocyte Count 1.60 (H) 0-0.80 K/UL Absolute Eosinophil Count 0.20 0-0.45 K/UL Absolute Basophil Count 0.10 0-0.20 K/UL Specimen Blood * CT ABD/PELV W CONTRAST (11/24/2016 11:15 AM) Impressions Chest: 1. No evidence of thoracic metastatic disease. 2. Unchanged linear opacity and mild bronchiectasis within the medial right middle lobe, likely scarring. Abdomen and Pelvis: 1. Interval retroperitoneal tumor debulking, right nephrectomy, and right psoas muscle resection with large recurrent retroperitoneal mass, consistent with reported sarcoma. 2. Development of peritoneal metastatic disease along the anterior right lower quadrant and posterior and medial caudal right hepatic lobe. 3. No significant abdominal or pelvic adenopathy. By my electronic signature, I attest that I have personally reviewed the images for this examination and formulated the interpretations and opinions expressed in this report Finalized by Micah Talbot M.D. on 11/24/2016 12:26 PM. Dictated by Jennifer Millan D.O. on 11/24/2016 11: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 Not currently on treatment. Technique: Multiple contiguous axial images were obtained through the chest, abdomen and pelvis following the uneventful administration of Omnipaque 300 IV contrast material. Portal venous phase of imaging was obtained. Post processing coronal and sagittal reconstruction images were made from the axial images. Comparison: CT chest, outside CT abdomen/pelvis, and MRI abdomen 08/17/2016. Chest Findings: Lower neck: No significant abnormalities are identified. Heart and Great Vessels: Note is made of common origin of the right brachiocephalic and left common carotid arteries. The aorta is normal in caliber. The heart is normal in size. No significant pericardial effusion is present. Axilla, Mediastinum and Yeny: No significant axillary, mediastinal or hilar adenopathy is seen. Trachea and Major Bronchi: Unremarkable. Lungs and Pleura: Scattered areas of pleural parenchymal scarring unchanged linear density along the medial right middle lobe with associated mild bronchiectasis, again likely representing additional area of scarring. No new or enlarging pulmonary nodule. No pleural effusion. Chest Wall and Osseous Structures: No destructive osseous lesions are seen. Abdomen and Pelvis Findings: Liver and Biliary system:The gallbladder appears grossly unremarkable. Interval development of low-attenuation subcapsular scalloping along the posterior caudal right hepatic lobe with associated heterogenous but predominantly hypodense soft tissue mass, measuring up to 3.8 cm, likely reflecting peritoneal metastatic implant (series 3, image 34). Additional similar- appearing lesions are noted along the medial aspect of segments 6/7 (for example on series 3, image 26).. The visualized portal veins are patent. Spleen: Unremarkable. Adrenal Glands and Kidneys:No suspicious adrenal lesions are seen. Interval right nephrectomy. The left kidney is unremarkable. Pancreas and Retroperitoneum: The pancreas is unremarkable. There has been interval tumor debulking of large right enhancing, heterogeneous retroperitoneal mass, as well as psoas muscle resection. The dominant superior aspect of the mass now measures 7.7 x 7.2 cm (series 3, image 32), previously 11.3 x 9.6 cm and measured in a similar fashion. The dominant inferior aspect of the mass the level of the iliac crest measures 10.7 x 8.0 cm (series 3, image 56), previously 10.9 x 8.8 cm when measured in a similar fashion. The mass directly abuts and partially encases the mid to low IVC and iliac vasculature. The mass measures at least 23.1 cm in maximal cephalocaudad dimension. Additionally there is been development of mild peritoneal nodularity along the right anterior lower quadrant (series 3, images 47-53). Additional peritoneal metastatic implants are noted along the medial posterior and posterior aspect of the right hepatic lobe as discussed above. No pathologically enlarged retroperitoneal lymph nodes are noted. Aorta and Major Vessels: The abdominal aorta is normal in caliber. Bowel: The large and small bowel loops are normal in caliber. There is mild mass effect on the right bowel loops due to the large retroperitoneal mass. Mild colonic diverticulosis. Mesentery and Peritoneal space: No significant mesenteric adenopathy. Development of peritoneal metastatic disease as discussed above. Pelvis: No discrete pelvic adenopathy. No significant free pelvic fluid. The undistended urinary bladder appears grossly unremarkable. Abdominal wall and Osseous Structures: Interval midline laparotomy with mild soft tissue thickening and stranding along the incision. Tiny fat-containing umbilical hernia. Prior bilateral inguinal mesh hernia repair. No destructive osseous lesion. Procedure Note Interface, Radiant Results - TueNov 24, 2016 12:[address] Chest, Abdomen and Pelvis with contrast Clinical Indication: Male, 46 years old. 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 Not currently on treatment. Technique: Multiple contiguous axial images were obtained through the chest, abdomen and pelvis following the uneventful administration of Omnipaque 300 IV contrast material. Portal venous phase of imaging was obtained. Post processing coronal and sagittal reconstruction images were made from the axial images. Comparison: CT chest, outside CT abdomen/pelvis, and MRI abdomen 08/17/2016. Chest Findings: Lower neck: No significant abnormalities are identified. Heart and Great Vessels: Note is made of common origin of the right brachiocephalic and left common carotid arteries. The aorta is normal in caliber. The heart is normal in size. No significant pericardial effusion is present. Axilla, Mediastinum and Yeny: No significant axillary, mediastinal or hilar adenopathy is seen. Trachea and Major Bronchi: Unremarkable. Lungs and Pleura: Scattered areas of pleural parenchymal scarring unchanged linear density along the medial right middle lobe with associated mild bronchiectasis, again likely representing additional area of scarring. No new or enlarging pulmonary nodule. No pleural effusion. Chest Wall and Osseous Structures: No destructive osseous lesions are seen. Abdomen and Pelvis Findings: Liver and Biliary system:The gallbladder appears grossly unremarkable. Interval development of low-attenuation subcapsular scalloping along the posterior caudal right hepatic lobe with associated heterogenous but predominantly hypodense soft tissue mass, measuring up to 3.8 cm, likely reflecting peritoneal metastatic implant (series 3, image 34). Additional similar- appearing lesions are noted along the medial aspect of segments 6/7 (for example on series 3, image 26).. The visualized portal veins are patent. Spleen: Unremarkable. Adrenal Glands and Kidneys:No suspicious adrenal lesions are seen. Interval right nephrectomy. The left kidney is unremarkable. Pancreas and Retroperitoneum: The pancreas is unremarkable. There has been interval tumor debulking of large right enhancing, heterogeneous retroperitoneal mass, as well as psoas muscle resection. The dominant superior aspect of the mass now measures 7.7 x 7.2 cm (series 3, image 32), previously 11.3 x 9.6 cm and measured in a similar fashion. The dominant inferior aspect of the mass the level of the iliac crest measures 10.7 x 8.0 cm (series 3, image 56), previously 10.9 x 8.8 cm when measured in a similar fashion. The mass directly abuts and partially encases the mid to low IVC and iliac vasculature. The mass measures at least 23.1 cm in maximal cephalocaudad dimension. Additionally there is been development of mild peritoneal nodularity along the right anterior lower quadrant (series 3, images 47-53). Additional peritoneal metastatic implants are noted along the medial posterior and posterior aspect of the right hepatic lobe as discussed above. No pathologically enlarged retroperitoneal lymph nodes are noted. Aorta and Major Vessels: The abdominal aorta is normal in caliber. Bowel: The large and small bowel loops are normal in caliber. There is mild mass effect on the right bowel loops due to the large retroperitoneal mass. Mild colonic diverticulosis. Mesentery and Peritoneal space: No significant mesenteric adenopathy. Development of peritoneal metastatic disease as discussed above. Pelvis: No discrete pelvic adenopathy. No significant free pelvic fluid. The undistended urinary bladder appears grossly unremarkable. Abdominal wall and Osseous Structures: Interval midline laparotomy with mild soft tissue thickening and stranding along the incision. Tiny fat-containing umbilical hernia. Prior bilateral inguinal mesh hernia repair. No destructive osseous lesion. IMPRESSION Chest: 1. No evidence of thoracic metastatic disease. 2. Unchanged linear opacity and mild bronchiectasis within the medial right middle lobe, likely scarring. Abdomen and Pelvis: 1. Interval retroperitoneal tumor debulking, right nephrectomy, and right psoas muscle resection with large recurrent retroperitoneal mass, consistent with reported sarcoma. 2. Development of peritoneal metastatic disease along the anterior right lower quadrant and posterior and medial caudal right hepatic lobe. 3. No significant abdominal or pelvic adenopathy. By my electronic signature, I attest that I have personally reviewed the images for this examination and formulated the interpretations and opinions expressed in this report Finalized by Micah Talbot M.D. on 11/24/2016 12:26 PM. Dictated by Jennifer Millan D.O. on 11/24/2016 11:23 AM. * CT CHEST W CONTRAST (11/24/2016 11:15 AM) Impressions Chest: 1. No evidence of thoracic metastatic disease. 2. Unchanged linear opacity and mild bronchiectasis within the medial right middle lobe, likely scarring. Abdomen and Pelvis: 1. Interval retroperitoneal tumor debulking, right nephrectomy, and right psoas muscle resection with large recurrent retroperitoneal mass, consistent with reported sarcoma. 2. Development of peritoneal metastatic disease along the anterior right lower quadrant and posterior and medial caudal right hepatic lobe. 3. No significant abdominal or pelvic adenopathy. By my electronic signature, I attest that I have personally reviewed the images for this examination and formulated the interpretations and opinions expressed in this report Finalized by Micah Talbot M.D. on 11/24/2016 12:26 PM. Dictated by Jennifer Millan D.O. on 11/24/2016 11: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 Not currently on treatment. Technique: Multiple contiguous axial images were obtained through the chest, abdomen and pelvis following the uneventful administration of Omnipaque 300 IV contrast material. Portal venous phase of imaging was obtained. Post processing coronal and sagittal reconstruction images were made from the axial images. Comparison: CT chest, outside CT abdomen/pelvis, and MRI abdomen 08/17/2016. Chest Findings: Lower neck: No significant abnormalities are identified. Heart and Great Vessels: Note is made of common origin of the right brachiocephalic and left common carotid arteries. The aorta is normal in caliber. The heart is normal in size. No significant pericardial effusion is present. Axilla, Mediastinum and Yeny: No significant axillary, mediastinal or hilar adenopathy is seen. Trachea and Major Bronchi: Unremarkable. Lungs and Pleura: Scattered areas of pleural parenchymal scarring unchanged linear density along the medial right middle lobe with associated mild bronchiectasis, again likely representing additional area of scarring. No new or enlarging pulmonary nodule. No pleural effusion. Chest Wall and Osseous Structures: No destructive osseous lesions are seen. Abdomen and Pelvis Findings: Liver and Biliary system:The gallbladder appears grossly unremarkable. Interval development of low-attenuation subcapsular scalloping along the posterior caudal right hepatic lobe with associated heterogenous but predominantly hypodense soft tissue mass, measuring up to 3.8 cm, likely reflecting peritoneal metastatic implant (series 3, image 34). Additional similar- appearing lesions are noted along the medial aspect of segments 6/7 (for example on series 3, image 26).. The visualized portal veins are patent. Spleen: Unremarkable. Adrenal Glands and Kidneys:No suspicious adrenal lesions are seen. Interval right nephrectomy. The left kidney is unremarkable. Pancreas and Retroperitoneum: The pancreas is unremarkable. There has been interval tumor debulking of large right enhancing, heterogeneous retroperitoneal mass, as well as psoas muscle resection. The dominant superior aspect of the mass now measures 7.7 x 7.2 cm (series 3, image 32), previously 11.3 x 9.6 cm and measured in a similar fashion. The dominant inferior aspect of the mass the level of the iliac crest measures 10.7 x 8.0 cm (series 3, image 56), previously 10.9 x 8.8 cm when measured in a similar fashion. The mass directly abuts and partially encases the mid to low IVC and iliac vasculature. The mass measures at least 23.1 cm in maximal cephalocaudad dimension. Additionally there is been development of mild peritoneal nodularity along the right anterior lower quadrant (series 3, images 47-53). Additional peritoneal metastatic implants are noted along the medial posterior and posterior aspect of the right hepatic lobe as discussed above. No pathologically enlarged retroperitoneal lymph nodes are noted. Aorta and Major Vessels: The abdominal aorta is normal in caliber. Bowel: The large and small bowel loops are normal in caliber. There is mild mass effect on the right bowel loops due to the large retroperitoneal mass. Mild colonic diverticulosis. Mesentery and Peritoneal space: No significant mesenteric adenopathy. Development of peritoneal metastatic disease as discussed above. Pelvis: No discrete pelvic adenopathy. No significant free pelvic fluid. The undistended urinary bladder appears grossly unremarkable. Abdominal wall and Osseous Structures: Interval midline laparotomy with mild soft tissue thickening and stranding along the incision. Tiny fat-containing umbilical hernia. Prior bilateral inguinal mesh hernia repair. No destructive osseous lesion. Procedure Note Interface, Radiant Results - TueNov 24, 2016 12:[address] Chest, Abdomen and Pelvis with contrast Clinical Indication: Male, 46 years old. 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 Not currently on treatment. Technique: Multiple contiguous axial images were obtained through the chest, abdomen and pelvis following the uneventful administration of Omnipaque 300 IV contrast material. Portal venous phase of imaging was obtained. Post processing coronal and sagittal reconstruction images were made from the axial images. Comparison: CT chest, outside CT abdomen/pelvis, and MRI abdomen 08/17/2016. Chest Findings: Lower neck: No significant abnormalities are identified. Heart and Great Vessels: Note is made of common origin of the right brachiocephalic and left common carotid arteries. The aorta is normal in caliber. The heart is normal in size. No significant pericardial effusion is present. Axilla, Mediastinum and Yeny: No significant axillary, mediastinal or hilar adenopathy is seen. Trachea and Major Bronchi: Unremarkable. Lungs and Pleura: Scattered areas of pleural parenchymal scarring unchanged linear density along the medial right middle lobe with associated mild bronchiectasis, again likely representing additional area of scarring. No new or enlarging pulmonary nodule. No pleural effusion. Chest Wall and Osseous Structures: No destructive osseous lesions are seen. Abdomen and Pelvis Findings: Liver and Biliary system:The gallbladder appears grossly unremarkable. Interval development of low-attenuation subcapsular scalloping along the posterior caudal right hepatic lobe with associated heterogenous but predominantly hypodense soft tissue mass, measuring up to 3.8 cm, likely reflecting peritoneal metastatic implant (series 3, image 34). Additional similar- appearing lesions are noted along the medial aspect of segments 6/7 (for example on series 3, image 26).. The visualized portal veins are patent. Spleen: Unremarkable. Adrenal Glands and Kidneys:No suspicious adrenal lesions are seen. Interval right nephrectomy. The left kidney is unremarkable. Pancreas and Retroperitoneum: The pancreas is unremarkable. There has been interval tumor debulking of large right enhancing, heterogeneous retroperitoneal mass, as well as psoas muscle resection. The dominant superior aspect of the mass now measures 7.7 x 7.2 cm (series 3, image 32), previously 11.3 x 9.6 cm and measured in a similar fashion. The dominant inferior aspect of the mass the level of the iliac crest measures 10.7 x 8.0 cm (series 3, image 56), previously 10.9 x 8.8 cm when measured in a similar fashion. The mass directly abuts and partially encases the mid to low IVC and iliac vasculature. The mass measures at least 23.1 cm in maximal cephalocaudad dimension. Additionally there is been development of mild peritoneal nodularity along the right anterior lower quadrant (series 3, images 47-53). Additional peritoneal metastatic implants are noted along the medial posterior and posterior aspect of the right hepatic lobe as discussed above. No pathologically enlarged retroperitoneal lymph nodes are noted. Aorta and Major Vessels: The abdominal aorta is normal in caliber. Bowel: The large and small bowel loops are normal in caliber. There is mild mass effect on the right bowel loops due to the large retroperitoneal mass. Mild colonic diverticulosis. Mesentery and Peritoneal space: No significant mesenteric adenopathy. Development of peritoneal metastatic disease as discussed above. Pelvis: No discrete pelvic adenopathy. No significant free pelvic fluid. The undistended urinary bladder appears grossly unremarkable. Abdominal wall and Osseous Structures: Interval midline laparotomy with mild soft tissue thickening and stranding along the incision. Tiny fat-containing umbilical hernia. Prior bilateral inguinal mesh hernia repair. No destructive osseous lesion. IMPRESSION Chest: 1. No evidence of thoracic metastatic disease. 2. Unchanged linear opacity and mild bronchiectasis within the medial right middle lobe, likely scarring. Abdomen and Pelvis: 1. Interval retroperitoneal tumor debulking, right nephrectomy, and right psoas muscle resection with large recurrent retroperitoneal mass, consistent with reported sarcoma. 2. Development of peritoneal metastatic disease along the anterior right lower quadrant and posterior and medial caudal right hepatic lobe. 3. No significant abdominal or pelvic adenopathy. By my electronic signature, I attest that I have personally reviewed the images for this examination and formulated the interpretations and opinions expressed in this report Finalized by Micah Talbot M.D. on 11/24/2016 12:26 PM. Dictated by Jennifer Millan D.O. on 11/24/2016 11:23 AM. * POC CREATININE, RAD (11/24/2016 10:32 AM) Component Value Range Creatinine, POC 1.2 0.4-1.24 MG/DL * GENERAL RAD LOWER EXT EXTERNAL IMAGING (09/08/2016 12:15 AM) Only the most recent of 2 results within the time period is included. Narrative This order has been auto finalized and does not contain a result.
== END 2016-12-07 06:50 | disposition home or self-care (01) ==
LOC: EDUNIT# 04:22 → ER 04:24
DX: Z90.5 Acquired absence of kidney (principal)
CPT/HCPCS: 36415; 71250; 74022; 74176; 80053; 81000; 82150; 83690; 83735; 85025; 85610; 85730; 93041; 96374; 96375

== ENCOUNTER 2016-12-09 01:58 | Emergency (ER) | payer MEDICAID ==
[~2016-12-09] VITALS: Ht 175.3 cm; Wt 83.9 kg
[~2016-12-09 01:58] MED LIST changes: +DEXA4TAB; +HYDR-3820 PO; +ONDA8TAB12; +OXYC15TA79; +PROC-1 PO
--- OUTSIDE RECORDS SUMMARY | 2016-12-09 02:11 | XMS REPORT | Continuity of Care Document ---
Author Author [facility] Organization [facility] Address Unknown Phone Unavailable Care Team Providers Care Business Analysis Analyst Name Role Phone No Pcp, Na PCP Unavailable Source Comments Some departments are not documenting in the electronic medical record. If you do not see the information that you expected, contact Release of Information in the Health Information Management department at [phone] for further assistance in locating additional records.[facility] Active Allergies and Adverse Reactions No Known [...] 17.8cm deep RP high grade UPS with [id number] unoriented margins. Mitotic rate was 75/10HPF. FISH [...] and discomfort. 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 Sure enough, CT 11/24/16 after just ~3 months after surgery showed large recurrent RP mass, with development of peritoneal metastatic disease, but no evidence of thoracic metastatic disease. In with sister, as there is some conflict ongoing at home with his . His mother plans on moving in from [place] to help relieve some stress/pressure off family. 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 @TT Approved by mOi Keith M.D. on 11/30/2016 12:17 PM By [...] 11/30/2016 CLINICAL INDICATION: Pleomorphic cell sarcoma, chemotherapy FINANCIAL MANAGEMENT CONSULTANT:Omi Keith M.D. and Deangelo Green M.D. SEDATION: [...] mcg IV Fentanyl. CATHETER: 24.5 cm 8 Canadian power port PUNCTURE SITE: Right internal jugular [...] The needle was exchanged for a 5 Canadian coaxial dilator. Attention was turned to the [...] atrium. Procedure Note Interface, Radiant Results - e Nov 30, 2016 1:01 PM CDT CHEST PORT PLACEMENT WITH ULTRASOUND AND FLUORO GUIDANCE DATE: 11/30/2016 CLINICAL INDICATION: Pleomorphic cell sarcoma, chemotherapy FINANCIAL MANAGEMENT CONSULTANT: Omi Keith M.D. and Deangelo Green M.D. [...] mcg IV Fentanyl. CATHETER: 24.5 cm 8 Canadian power port PUNCTURE SITE: Right internal jugular [...] The needle was exchanged for a 5 Canadian coaxial dilator. Attention was turned to the [...]
--- OUTSIDE RECORDS SUMMARY | 2016-12-09 02:12 | XMS REPORT | Continuity of Care Document ---
Author Author [facility] Organization [facility] Address Unknown Phone Unavailable Allergies Active Description [...] NG MD Ot 786.59 CHEST PAIN NEC 08/17/2016 Ot 729.5 PAIN IN LIMB 08/17/2016 NORMA NG MD Ot 786.50 CHEST PAIN NOS 08/17/2016 NORMA NG MD Ot 786.59 CHEST PAIN NEC 08/17/2016 SHAVON HINKLE MD Ot 785.1 PALPITATIONS 08/17/2016 SHAVON HINKLE MD Ot 794.31 ABNORM ELECTROCARDIOGRAM 08/17/2016 MUKESH FLOREZ APRN Ot R19.03 RIGHT LOWER QUADRANT ABDOMINAL SWELLING, 08/17/2016 Ot 729.5 PAIN IN LIMB 08/17/2016 NROMA NG MD Ot 786.50 CHEST PAIN NOS 08/17/2016 NORMA NG MD Ot 786.59 CHEST PAIN NEC 08/17/2016 SHAVON HINKLE MD Ot 785.1 PALPITATIONS 08/17/2016 SHAVON HINKLE MD Ot 794.31 ABNORM ELECTROCARDIOGRAM 08/17/2016 MUKESH FLOREZ APRN Ot R19.03 RIGHT LOWER QUADRANT ABDOMINAL SWELLING, 08/17/2016 MUKESH FLOREZ DIAPER FOLDER Ot R19.03 RIGHT LOWER QUADRANT ABDOMINAL SWELLING, 08/17/2016 MUKESH FLOREZ APRN Ot R19.03 RIGHT LOWER QUADRANT ABDOMINAL SWELLING, 09/24/2016 NORMA NG MD Ot 786.50 CHEST PAIN NOS 09/24/2016 NORMA NG MD Ot 786.59 CHEST PAIN NEC 09/24/2016 SHAVON HINKLE MD Ot 785.1 PALPITATIONS 09/24/2016 SHAVON HINKLE MD Ot 794.31 ABNORM ELECTROCARDIOGRAM 11/07/2016 NORMA NG MD Ot 786.50 CHEST PAIN NOS 11/07/2016 NORMA NG MD Ot 786.59 CHEST PAIN NEC 11/07/2016 SHAVON HINKLE MD Ot 785.1 PALPITATIONS 11/07/2016 SHAVON HINKLE MD Ot 794.31 ABNORM ELECTROCARDIOGRAM 11/07/2016 MIKEY GILLESPIE, BRIAN Reyes Ot M54.31 SCIATICA, RIGHT SIDE Procedures Results Test Result Range Complete blood count (CBC) with automated white blood cell (WBC) differential - 08/17/16 10:50 Blood leukocytes automated count (number/volume) 11.7 10*3/ uL 4.3-11.0 Blood erythrocytes automated count (number/volume) 5.37 10*6 /uL 4.35-5.85 Venous blood hemoglobin measurement (mass/volume) 15.5 g/dL 13.3-17.7 Blood hematocrit (volume fraction) 46 % 40-54 Automated erythrocyte mean corpuscular volume 85 [foz_us] 80-99 Automated erythrocyte mean corpuscular hemoglobin (mass per erythrocyte) 29 pg 25-34 Automated erythrocyte mean corpuscular hemoglobin concentration measurement ( mass/volume) 34 g/dL 32-36 Automated erythrocyte distribution width ratio 14.1 % 10.0-14.5 Automated blood platelet count (count/volume) 330 10*3/uL 130-400 Automated blood platelet mean volume measurement 9.5 [foz_us ] 7.4-10.4 Automated blood neutrophils/100 leukocytes 66 % 42-75 Automated blood lymphocytes/100 leukocytes 19 % 12-44 Blood monocytes/100 leukocytes 12 % 0-12 Automated blood eosinophils/100 leukocytes 2 % 0-10 Automated blood basophils/100 leukocytes 0 % 0-10 Blood neutrophils automated count (number/volume) 7.8 10*3 1.8-7.8 Blood lymphocytes automated count (number/volume) 2.3 10*3 1.0-4.0 Blood monocytes automated count (number/volume) 1.4 10*3 0.0-1.0 Automated eosinophil count 0.2 10*3/uL 0.0-0.3 Automated blood basophil count (count/volume) 0.0 10*3/uL 0.0-0.1 Comprehensive metabolic panel - 08/17/16 10:50 Serum or plasma sodium measurement (moles/volume) 139 mmol/ L 135-145 Serum or plasma potassium measurement (moles/volume) 4.2 mmol/L 3.6-5.0 Serum or plasma chloride measurement (moles/volume) 105 mmol /L 98-107 Carbon dioxide 24 mmol/L 21-32 Serum or plasma anion gap determination (moles/volume) 10 mmol/L 5-14 Serum or plasma urea nitrogen measurement (mass/volume) 12 mg/dL 7-18 Serum or plasma creatinine measurement (mass/volume) 0.83 mg /dL 0.60-1.30 Serum or plasma urea nitrogen/creatinine mass ratio 14 NRG Serum or plasma creatinine measurement with calculation of estimated glomerular filtration rate > NRG Serum or plasma glucose measurement (mass/volume) 101 mg/dL 70-105 Serum or plasma calcium measurement (mass/volume) 9.3 mg/dL 8.5-10.1 Serum or plasma total bilirubin measurement (mass/volume) 0.2 mg/dL 0.1-1.0 Serum or plasma alkaline phosphatase measurement (enzymatic activity/volume) 103 U/L 40-136 Serum or plasma aspartate aminotransferase measurement (enzymatic activity/ volume) 17 U/L 5-34 Serum or plasma alanine aminotransferase measurement (enzymatic activity/volume ) 17 U/L 0-55 Serum or plasma protein measurement (mass/volume) 7.0 g/dL 6.4-8.2 Serum or plasma albumin measurement (mass/volume) 3.9 g/dL 3.2-4.5 Encounters ACCT No. Visit Date/Time Discharge Status Pt. Type Provider Facility Loc./Unit Complaint [id number] 11/07/2016 12:24:00 2016 12:49:00 DIS Emergency BRIAN JENSEN MD [facility] ER R SIDE SCIATIC NERVE PAIN [id number] 08/17/2016 10:26:00 2016 15:30:00 DIS Emergency MUKESH FLOREZ APRN [facility] ER ABD PAIN/KNOT [id number] 10/25/2013 07:53:00 2013 23:59:59 CLS Outpatient SHAVON HINKLE MD [facility] CARD ABN EKG,PALP [id number] 10/02/2013 13:52:00 2013 23:59:59 CLS Outpatient NORMA NG MD [facility] CARD CP,STERNEL PAIN [id number] 06/10/2015 11:41:00 Document Registration [id number] 03/30/2011 11:36:00 Document Registration
[2016-12-09] MEDS ORDERED: NS IV 1000 ML 1,000 ML IV STA (03:07)
[2016-12-09] MEDS ORDERED: fentaNYL INJECTION 100 MCG/2 ML AMP IVP STA ×3 (03:07→04:57)
--- NOTE | 2016-12-09 03:07 | ED General ---
General Chief Complaint: Fever-Adult/Adol Stated Complaint: FEVER 102.3 Nursing Triage Note: pt ambulated to room. pt states he feels like he needs antibiotics to drop his temp. because he is going to get an antibody infusion at in approx. 5 hours from now. Nursing Sepsis Screen: Possible Sepsis Risk Source of Information: Patient, Family (mom) Exam Limitations: No Limitations History of Present Illness Time Seen by Provider: 02:57 Initial Comments Patient presents to the ER with his mother because he is found to have a fever 100.3. 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 He was surgically removed at and then he is followed by heme oncology and has plans to receive his second dose of chemotherapy this morning at 11:00 AM. He states he was not feeling well and having some shortness of breath 2 days ago so he came to the ER for a CAT scan was performed and was told that he may have a small UTI but nothing to worry about. This did not concern him at times he started feeling better but today his shortness of breath has improved some but his fever has him concerned. Allergies and Home Medications Allergies Coded Allergies: NKANo Known Allergies (Unverified Allergy, Mild, 01/19/09) Home Medications Dexamethasone 4 Mg Tablet, #36 (Reported) Hydrocodone/Acetaminophen 1 Each Tablet, 1 EACH PO Q4H, #20 Prescribed by: KATINA BROWNE on 12/07/16 0647 Ondansetron HCl 8 Mg Tablet, #30 (Reported) Oxycodone HCl 15 Mg Tablet, #180 (Reported) Prochlorperazine Maleate 10 Mg Tablet, Unknown Dose PO, (Reported) Constitutional: No chills, No diaphoresis, fever, malaise, No weakness, No weight gain, No weight loss EENTM: no symptoms reported Respiratory: No cough, short of breath, other (pain on deep inspiration) Cardiovascular: chest pain (pain on deep inspiration along the ribs left side especially), No palpitations, No syncope Gastrointestinal: No abdominal pain, No constipation, No diarrhea, No nausea, No vomiting Genitourinary: No dysuria, No pain Musculoskeletal: No back pain, No joint pain Skin: No pruritus, No rash Psychiatric/Neurological: Denies Headache, Denies Numbness Past Mbaovsk-Skqpep-Tgfywg Hx Patient Social History Alcohol Use: Denies Use Recreational Drug Use: No Smoking Status: Never a Smoker 2nd Hand Smoke Exposure: No Recent Foreign Travel: No Contact w/Someone Who Travel: No Recent Infectious Disease Expo: No Recent Hopitalizations: No Immunizations Up To Date Tetanus Booster (TDap): Less than 5yrs Seasonal Allergies Seasonal Allergies: Yes Surgeries HX Surgeries: Yes Surgeries: Abdominal, Appendectomy, Nephrectomy Respiratory Hx Respiratory Disorders: No Cardiovascular Hx Cardiac Disorders: No Neurological Hx Neurological Disorders: No Reproductive System Hx Reproductive Disorders: No Genitourinary Hx 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) Gastrointestinal Hx Gastrointestinal Disorders: Yes (SARCOMA IN ABDOMEN) Musculoskeletal Hx 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) Endocrine Hx Endocrine Disorders: No HEENT HX ENT Disorders: No Cancer Hx Cancer: Yes (SARCOMA--RIGHT PSOAS, RIGHT KIDNEY, LIVER, LYMPH NODES) Psychosocial Hx Psychiatric Problems: No Integumentary HX Skin/Integumentary Disorder: No Blood Transfusions Hx Blood Disorders: No Physical Exam-Suspected Sepsis Physical Exam Vital Signs Vital Sign - Last 12Hours 12/09/16 02:18 Temp 100.3 Pulse 117 Resp 20 B/P (MAP) 127/107 Pulse Ox 96 O2 Delivery Room Air Capillary Refill : Less Than 3 Seconds Blood Pressure Mean: 114 General Appearance: WD/WN, Anxious, Mild Distress Eyes: Bilateral Eye EOMI, Bilateral Eye Normal Inspection, Bilateral Eye PERRL HEENT: PERRL/EOMI, Pharynx Normal Neck: Normal Inspection, Non Tender, Supple Respiratory: Lungs Clear, Normal Breath Sounds, No Crackles, No Pleural Rub, No Respiratory Distress, No Wheezing, Other (pleuritic chest pain and taking a short shallow breaths. Tenderness to ribs on left flank.) Cardiovascular: Regular Rate, Rhythm, No Edema, No Gallop, No JVD, No Murmur, Normal Peripheral Pulses Gastrointestinal: Normal Bowel Sounds, Non Tender, Soft Back: Normal Inspection, No CVA Tenderness, No Vertebral Tenderness Extremity: Normal Capillary Refill, Normal Inspection, No Calf Tenderness, No Pedal Edema Neurologic/Psychiatric: Alert, Oriented x3 Skin: normal color, warm/dry Lymphatic: No Adenopathy Focused Exam Lactic Acid Level Laboratory Tests Test 12/09/16 03:31 Lactic Acid Level 1.07 MMOL/L (0.50-2.00) Progress/Results/Core Measures Suspected Sepsis Recent Fever Within 48 Hours: Yes Infection Criteria Present: Suspected New Infection New/Unexplained Altered Menta: No Sepsis Screen: Possible Sepsis Risk Sepsis Diagnosis: SIRS Temperature:100.3 Pulse: 117 Respiratory Rate: 20 Laboratory Tests 12/09/16 03:31: White Blood Count 5.7 Blood Pressure 127 /107 Mean: 114 Laboratory Tests 12/09/16 03:31: Creatinine 1.07, INR Comment 1.1, Platelet Count 248, Total Bilirubin 0.6 Results/Orders Lab Results Laboratory Tests Test 12/09/16 03:31 12/09/16 06:10 Range/Units White Blood Count 5.7 4.3-11.0 10^3/uL Red Blood Count 4.41 4.35-5.85 10^6/uL Hemoglobin 12.2 L 13.3-17.7 G/DL Hematocrit 35 L 40-54 % Mean Corpuscular Volume 80 80-99 FL Mean Corpuscular Hemoglobin 28 25-34 PG Mean Corpuscular Hemoglobin Concent 35 32-36 G/DL Red Cell Distribution Width 12.9 10.0-14.5 % Platelet Count 248 130-400 10^3/uL Mean Platelet Volume 8.9 7.4-10.4 FL Neutrophils (%) (Auto) 84 H 42-75 % Lymphocytes (%) (Auto) 13 12-44 % Monocytes (%) (Auto) 2 0-12 % Eosinophils (%) (Auto) 0 0-10 % Basophils (%) (Auto) 1 0-10 % Neutrophils # (Auto) 4.8 1.8-7.8 X 10^3 Lymphocytes # (Auto) 0.7 L 1.0-4.0 X 10^3 Monocytes # (Auto) 0.1 0.0-1.0 X 10^3 Eosinophils # (Auto) 0.0 0.0-0.3 10^3/uL Basophils # (Auto) 0.0 0.0-0.1 10^3/uL Prothrombin Time 13.9 12.2-14.7 SEC INR Comment 1.1 0.8-1.4 Activated Partial Thromboplast Time 31 24-35 SEC Sodium Level 130 L 135-145 MMOL/L Potassium Level 4.0 3.6-5.0 MMOL/L Chloride Level 93 L 98-107 MMOL/L Carbon Dioxide Level 25 21-32 MMOL/L Anion Gap 12 5-14 MMOL/L Blood Urea Nitrogen 21 H 7-18 MG/DL Creatinine 1.07 0.60-1.30 MG/DL Estimat Glomerular Filtration Rate > 60 BUN/Creatinine Ratio 20 Glucose Level 120 H 70-105 MG/DL Lactic Acid Level 1.07 0.50-2.00 MMOL/L Calcium Level 9.0 8.5-10.1 MG/DL Total Bilirubin 0.6 0.1-1.0 MG/DL Aspartate Amino Transf (AST/SGOT) 20 5-34 U/L Alanine Aminotransferase (ALT/SGPT) 17 0-55 U/L Alkaline Phosphatase 109 40-136 U/L Total Protein 6.7 6.4-8.2 GM/DL Albumin 3.2 3.2-4.5 GM/DL Urine Color YELLOW Urine Clarity CLEAR Urine pH 6.5 5-9 Urine Specific Parsons 1.015 L 1.016-1.022 Urine Protein 2+ H NEGATIVE Urine Glucose (UA) NEGATIVE NEGATIVE Urine Ketones NEGATIVE NEGATIVE Urine Nitrite NEGATIVE NEGATIVE Urine Bilirubin NEGATIVE NEGATIVE Urine Urobilinogen NORMAL NORMAL MG/DL Urine Leukocyte Esterase NEGATIVE NEGATIVE Urine RBC (Auto) 1+ H NEGATIVE Urine RBC RARE /HPF Urine WBC NONE /HPF Urine Squamous Epithelial Cells NONE /HPF Urine Crystals NONE /LPF Urine Bacteria NEGATIVE /HPF Urine Casts NONE /LPF Urine Mucus NEGATIVE /LPF Urine Culture Indicated NO My Orders Orders - JOSHUA DEL ROSARIO Cbc With Automated Diff (12/09/16 03:07) Comprehensive Metabolic Panel (12/09/16 03:07) Lactic Acid Analyzer (12/09/16 03:07) Blood Culture (12/09/16 03:07) Sputum Culture (12/09/16 03:07) Ua Culture If Indicated (12/09/16 03:07) Protime With Inr (12/09/16 03:07) Partial Thromboplastin Time (12/09/16 03:07) O2 (12/09/16 03:07) Saline Lock/Iv-Start (12/09/16 03:07) Saline Lock/Iv-Start (12/09/16 03:07) Vital Signs Adult Sepsis Patie Q1HR (12/09/16 03:07) Remove Rings In Anticipation O (12/09/16 03:07) Ns Iv 1000 Ml (Sodium Chloride 0.9%) (12/09/16 03:07) Chest Pa/Lat (2 View) (12/09/16 03:07) Fentanyl Injection (Sublimaze Injection (12/09/16 03:07) Acetaminophen Tablet (Tylenol Tablet) (12/09/16 03:15) Fentanyl Injection (Sublimaze Injection (12/09/16 04:46) Fentanyl Injection (Sublimaze Injection (12/09/16 04:57) Ns Iv 1000 Ml (Sodium Chloride 0.9%) (12/09/16 04:57) Heparin Drip 16959 Unit/500ml (Heparin (12/09/16 05:12) Heparin (Bolus Per Protocol) (Heparin (B (12/09/16 05:15) Cefepime Injection (Maxipime Injection) (12/09/16 06:04) Piperacillin Sodium/Tazobactam (Zosyn Vi (12/09/16 06:15) Piperacillin Sodium/Tazobactam (Zosyn Vi (12/09/16 06:17) Ns (Ivpb) (Sodium Chloride 0.9% Ivpb Bag (12/09/16 06:17) Medications Given in ED Current Medications Medications Dose Ordered Sig/Obdulia Route Start Time Stop Time Status Last Admin Dose Admin Acetaminophen 1,000 mg ONCE ONCE PO 12/09/16 03:15 12/09/16 03:16 DC 12/09/16 03:40 1,000 MG Heparin Sodium (Porcine) HEPARIN FULL PROTOC... ONCE ONCE IV 12/09/16 05:15 12/09/16 05:16 DC 12/09/16 05:30 5,000 UNIT Heparin Sodium/ Dextrose 500 ml @ 0 mls/hr Q0M ONCE IV 12/09/16 05:12 12/09/16 05:14 DC 12/09/16 05:33 20 MLS/HR Piperacillin Sod/ Tazobactam Sod 4.5 gm ONCE ONCE IV 12/09/16 06:15 12/09/16 06:16 DC 12/09/16 06:28 4.5 GM Sodium Chloride 1,000 ml @ 0 mls/hr Q0M ONCE IV 12/09/16 04:57 12/09/16 04:59 DC 12/09/16 05:00 1,000 MLS/HR Vital Signs/I&O Vital Sign - Last 12Hours 12/09/16 12/09/16 02:18 03:40 Temp 100.3 98.5 Pulse 117 Resp 20 B/P (MAP) 127/107 Pulse Ox 96 O2 Delivery Room Air Capillary Refill : Less Than 3 Seconds Blood Pressure Mean: 114 Progress Note #1: Time: 04:46 Progress Note Patient having right lower chest pain when he arrived it was pleuritic in nature and improved somewhat to 50 g of fentanyl but then became worse after a stay to the point that he was crying out in pain. Gave another 150 g of fentanyl and another liter fluids and we'll send him to the scanner for a CTA as there is no evidence of old increased white count or other signs of infection however is low fever may be indicative of a PE. Progress Note #2: Time: 05:16 Progress Note Patient's had a kidney removed and is not a candidate for CTA at this time. He would need a VQ scan which cannot be done until later today so we will just consider doing a ER to ER transfer back to where his treatment has been received and he can get further workup. We'll start him on a heparin drip. Progress Note #3: Time: 05:58 Progress Note His pleuritic chest pain is concentrated on the opposite side of his atelectasis seen on x-ray and CT from 2 days ago. With his history of cancer and chemotherapy and fever were concerned originally with possible pneumonia or other infection. Still waiting on urine sample so we can get a urinalysis. He is having high anxiety and pleuritic chest pain that is relieved with fentanyl. At home he is using a healthy dose of oxycodone every 4 hours. Well scores for moderate probability. As soon as we get some urine out of him we will go ahead and start him on wide spectrum antibiotics. Progress Note #4: Time: 06:21 Progress Note The patient's pain is under much better control his breathing is improved. Urine was obtained so we have initiated cefepime and Zosyn. His GFR should support the use of these meds at this time. I called and spoke with triage again and they said they were still waiting chip person back from the accepting physician. They have paged and called the cell phone and received no answer. Micaela at law office receptionist said she would call the triage nurse and see what to do next. Progress Note #5: Time: 06:29 Progress Note Spoke to Zahraa at [facility] transfer center and they called physician again but had not heard back. They will try to reach out to [facility] if that is unsuccessful. Progress Note #6: Time: 07:05 Progress Note spoke Kat accounting director and accepted to admit to Oncology attending at [facility]. Dr. Gamino. Xferred to ARACELIS Gutierrez to give Nursing Report. Diagnostic Imaging Diagonstic Imaging: Xray Plain Films/CT/US/NM/MRI: chest Comments Right lower lobe discoid atelectasis without evidence of infiltrate. No change compared to CT scan obtained 12/07/2016. NAME: MARYLOU MELGOZA [facility] REC#: [id number] PT STATUS: REG ER : 1970 PHYSICIAN: JOSHUA DEL ROSARIO MD ADMIT DATE: 12/09/16/ER Draft Date of Exam:12/09/16 CHEST PA/LAT (2 VIEW) INDICATION: Immunosuppression, fever. PA and lateral chest. Right IJ Port-A-Cath tip projects over the SVC. There is some discoid atelectasis in the right lung base. There are no effusions or pneumothoraces. There are no pulmonary infiltrates. IMPRESSION: Right basilar discoid atelectasis. No change compared to 12/07/2016. Dictated on workstation # [id number] Dict: 12/09/16 0634 Trans: 12/09/16 0643 [facility] [id number] Interpreted by: OPHELIA DESHPANDE Electronically signed by: Reviewed: Reviewed by Me Consults Consults : Consulting Physician: GALA MARIA DO Consults Notes Concern for the patient having a PE as well as eating pain management and discussed the case with Dr. Maria who recommends that he be put on anticoagulation and sent back to [facility]. Transfer of Care Transfer of Care Time: 07:11 Care transferred to: Dr Glover, ED. Departure Communication Communication [id number]: Spoke to Kat RICHARDS admitting team and discussed the case and she will talk to internal medicine and call us back. Impression Impression: Primary Impression: Fever Qualified Codes: R50.9 - Fever, unspecified Additional Impressions: SOB (shortness of breath) Atelectasis of right lung Disposition: ADMITTED INPATIENT (ku) Condition: Stable Transfer Transfer Facility: [facility], oncology team. Method of Transfer: EMS (acls) Departure-Patient Inst. Referrals: NO,LOCAL PHYSICIAN (PCP/Family) Primary Care Physician JOSHUA DEL ROSARIO Dec 09, 2016 03:06
[2016-12-09] MEDS ORDERED: ACETAMINOPHEN 500 MG TAB (TYLENOL) PO ONE (03:15)
[2016-12-09 03:57] LABS: BASOPHILS % (AUTO) 1 % (0-10); EOSINOPHILS % (AUTO) 0 % (0-10); LYMPHOCYTES # (AUTO) 0.7 X 10^3 (1.0-4.0); LYMPHOCYTES % (AUTO) 13 % (12-44); MEAN CORPUSCULAR HEMOGLOBIN 28 PG (25-34); MEAN CORPUSCULAR HGB CONC 35 G/DL (32-36); MEAN CORPUSCULAR VOLUME 80 FL (80-99); MEAN PLATELET VOLUME 8.9 FL (7.4-10.4); MONOCYTES # (AUTO) 0.1 X 10^3 (0.0-1.0); MONOCYTES % (AUTO) 2 % (0-12); NEUTROPHILS # (AUTO) 4.8 X 10^3 (1.8-7.8); NEUTROPHILS % (AUTO) 84 % (42-75); PLATELET COUNT 248 10^3/uL (130-400); RED BLOOD COUNT 4.41 10^6/uL (4.35-5.85); RED CELL DISTRIBUTION WIDTH 12.9 % (10.0-14.5); WHITE BLOOD COUNT 5.7 10^3/uL (4.3-11.0)
[2016-12-09 04:05] LABS: INR 1.1 (0.8-1.4); PROTHROMBIN TIME PATIENT 13.9 SEC (12.2-14.7)
[2016-12-09 04:16] LABS: ALANINE AMINOTRANSFERASE 17 U/L (0-55); ALBUMIN 3.2 GM/DL (3.2-4.5); ANION GAP 12 MMOL/L (5-14); ASPARTATE AMINO TRANSFERASE 20 U/L (5-34); BILIRUBIN,TOTAL 0.6 MG/DL (0.1-1.0); BLOOD UREA NITROGEN 21 MG/DL (7-18); BUN/CREATININE RATIO 20; CARBON DIOXIDE 25 MMOL/L (21-32); CHLORIDE 93 MMOL/L (98-107); CREATININE SERUM 1.07 MG/DL (0.60-1.30); GFR ESTIMATED > 60; GLUCOSE 120 MG/DL (70-105); SODIUM 130 MMOL/L (135-145); TOTAL PROTEIN 6.7 GM/DL (6.4-8.2)
[2016-12-09] MEDS ORDERED: NS IV 1000 ML 1,000 ML IV ONE (04:57)
[2016-12-09] MEDS ORDERED: HEParin DRIP 25000 UNIT/500ML 500 ML IV ONE (05:12)
[2016-12-09] MEDS ORDERED: HEParin 1000 UNIT/ML (10ML VIAL) FOR BOLUS IV ONE (05:15)
[2016-12-09] MEDS ORDERED: CEFEPIME INJECTION 2,000 MG in NS (IVPB) 50 ML IV STA (06:04)
[2016-12-09] MEDS ORDERED: PIPERACILLIN/TAZO 4.5 GM VIAL (ZOSYN) IV ONE ×2 (06:15→06:17)
[2016-12-09] MEDS ORDERED: NS (IVPB) 100 ML ONE (06:17)
[2016-12-09 06:27] LABS: BILIRUBIN,URINE NEGATIVE (NEGATIVE); KETONES,URINE NEGATIVE (NEGATIVE); LEUKOCYTE ESTERASE ,URINE NEGATIVE (NEGATIVE); NITRITE,URINE NEGATIVE (NEGATIVE); PH,URINE 6.5 (5-9); PROTEIN,URINE 2+ (NEGATIVE); UROBILINOGEN,URINE NORMAL (NORMAL)
--- NOTE | 2016-12-09 06:44 | Diagnostic Imaging Report ---
INDICATION: Immunosuppression, fever. PA and lateral chest. Right IJ Port-A-Cath tip projects over the SVC. There is some discoid atelectasis in the right lung base. There are no effusions or pneumothoraces. There are no pulmonary infiltrates. IMPRESSION: Right basilar discoid atelectasis. No change compared to 12/07/2016. Dictated by: Dictated on workstation # [id number]
[2016-12-09] MEDS ORDERED: MONT4GRA PO (07:19)
[2016-12-09] MEDS ORDERED: CETI10CA PO (07:19)
[2016-12-09 08:00] VITALS: BP 143/88
[2016-12-09 09:00] VITALS: BP 132/80
[2016-12-09 10:00] VITALS: BP 136/81
[2016-12-09] MEDS ORDERED: ORPHENADRINE 60 MG/2 ML (NORFLEX) AMP IV ONE (11:45)
[2016-12-09] MEDS ORDERED: PIPERACILLIN SODIUM/TAZOBACTAM 4.5 GM in NS (IVPB) 100 ML IV ONE (16:15)
[2016-12-09 16:22] VITALS: BP 126/79
[2016-12-09 17:19] VITALS: BP 126/79
== END 2016-12-09 17:29 | disposition short-term general hospital (02) ==
LOC: EDUNIT# 01:58 → ER 02:00
DX: J98.11 Atelectasis (principal); R50.9 Fever, unspecified; C49.4 Malignant neoplasm of connective and soft tissue of abdomen; Z90.5 Acquired absence of kidney; Z85.528 Personal history of other malignant neoplasm of kidney; Z85.831 Personal history of malignant neoplasm of soft tissue; Z85.858 Personal history of malignant neoplasm of other endocrine glands
CPT/HCPCS: 36415; 71020; 80053; 81000; 83605; 85025; 85610; 85730; 87040; 96365; 96366; 96367; 96375; 96376

== ENCOUNTER 2016-12-11 02:33 | Emergency (ER) | payer MEDICAID ==
[~2016-12-11] VITALS: Ht 175.3 cm; Wt 83.9 kg
[~2016-12-11 02:33] MED LIST changes: +CETI10CA PO; +MONT4GRA PO
[2016-12-11] MEDS ORDERED: ASCO-262 PO (02:45)
[2016-12-11] MEDS ORDERED: PROC-1 PO (02:45)
[2016-12-11] MEDS ORDERED: ENOX80DI7 (02:45)
[2016-12-11] MEDS ORDERED: ONDA8TAB12 (02:45)
[2016-12-11] MEDS ORDERED: GABA-488 PO (02:45)
[2016-12-11] MEDS ORDERED: NS IV 1000 ML 1,000 ML IV STA (03:01)
--- NOTE | 2016-12-11 03:01 | ED General ---
General Chief Complaint: Fever-Adult/Adol Stated Complaint: FEVER 101.4 Nursing Triage Note: Patient reports fever. patient reports was released from at 1700 on 12/10 Nursing Sepsis Screen: Possible Sepsis Risk Source of Information: Patient, Family (mom) Exam Limitations: No Limitations History of Present Illness Time Seen by Provider: 02:51 Initial Comments Patient presents to ER with a fever of 101 Fahrenheit. 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 They did do a CTA and found he had pulmonary embolisms in both lungs. They did not see any evidence of a pneumonia. The CTA was obtained early on the seventh, yesterday. He was then allowed to go home with Lovenox injections for the next 9 months. He was cared for by oncology. He was discharged at 5 PM yesterday. After he got home he started feeling warm and feverish so his temperature was checked and then he called the on-call doctor listed in his discharge paperwork who recommended that he go to the ER and get some oral antibiotics. The on-call physician said there was no evidence of pneumonia on the CT a from earlier that day. The patient reports he has a little bit of burning when he PEs and has some pain just over his pelvis midline. He denies any shortness of breath at the moment or coughing. He's had no diarrhea or rash. Allergies and Home Medications Allergies Coded Allergies: ARLETANo Known Allergies (Unverified Allergy, Mild, 01/19/09) Home Medications Ascorbate Calcium 500 Mg Tablet, 500 MG PO, (Reported) Cetirizine HCl 10 Mg Capsule, 10 MG PO, (Reported) Enoxaparin Sodium 80 Mg/0.8 Ml Syringe, #48 (Reported) Gabapentin 300 Mg Capsule, 300 MG PO, (Reported) Montelukast Sodium 4 Mg Gran.pack, 4 MG PO HS, (Reported) Ondansetron HCl 8 Mg Tablet, #30 (Reported) Oxycodone HCl 15 Mg Tablet, #180 (Reported) Prochlorperazine Maleate 10 Mg Tablet, 10 MG PO, (Reported) Constitutional: No chills, No diaphoresis, fever, malaise EENTM: No ear discharge, No ear pain, No epistaxis, No eye pain, No hoarseness , No nose congestion Respiratory: No cough, No dyspnea on exertion, No phlegm, No short of breath, No wheezing Cardiovascular: No chest pain, No edema, No palpitations Gastrointestinal: abdominal pain, No constipation, No diarrhea, No nausea Genitourinary: No discharge, dysuria, No frequency, No hematuria, No hesitancy , No incontinence Musculoskeletal: No back pain, No joint pain Skin: No pruritus, No rash Psychiatric/Neurological: Denies Headache, Denies Numbness Past Nrhvegj-Murevy-Bbjwyl Hx Patient Social History Alcohol Use: Denies Use Recreational Drug Use: No Smoking Status: Never a Smoker 2nd Hand Smoke Exposure: No Recent Foreign Travel: No Contact w/Someone Who Travel: No Recent Infectious Disease Expo: No Recent Hopitalizations: No Immunizations Up To Date Tetanus Booster (TDap): Less than 5yrs Seasonal Allergies Seasonal Allergies: Yes Surgeries HX Surgeries: Yes Surgeries: Abdominal, Appendectomy, Nephrectomy Respiratory Hx Respiratory Disorders: No Respiratory Disorders: Pulmonary Embolism Cardiovascular Hx Cardiac Disorders: No Neurological Hx Neurological Disorders: No Reproductive System Hx Reproductive Disorders: No Genitourinary Hx 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) Gastrointestinal Hx Gastrointestinal Disorders: Yes (SARCOMA IN ABDOMEN) Musculoskeletal Hx 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) Endocrine Hx Endocrine Disorders: No HEENT HX ENT Disorders: No Cancer Hx Cancer: Yes (SARCOMA--RIGHT PSOAS, RIGHT KIDNEY, LIVER, LYMPH NODES) Psychosocial Hx Psychiatric Problems: No Integumentary HX Skin/Integumentary Disorder: No Blood Transfusions Hx Blood Disorders: No Physical Exam-Suspected Sepsis Physical Exam Vital Signs Vital Sign - Last 12Hours 12/11/16 12/11/16 02:39 04:05 Temp 101.3 Pulse 117 Resp 18 B/P (MAP) 142/89 Pulse Ox 97 O2 Delivery Room Air Capillary Refill : Less Than 3 Seconds Blood Pressure Mean: 106 General Appearance: No Apparent Distress, WD/WN Eyes: Bilateral Eye EOMI, Bilateral Eye Normal Inspection, Bilateral Eye PERRL HEENT: PERRL/EOMI, TMs Normal, Normal ENT Inspection, Pharynx Normal Neck: Full Range of Motion, Normal Inspection, Non Tender, Supple Respiratory: Chest Non Tender, Lungs Clear, Normal Breath Sounds, No Accessory Muscle Use, No Respiratory Distress Cardiovascular: Regular Rate, Rhythm, No Edema, Normal Peripheral Pulses Gastrointestinal: Normal Bowel Sounds, No Organomegaly, Soft, Tenderness (mild suprapubic) Back: Normal Inspection, No CVA Tenderness Extremity: Normal Capillary Refill, No Pedal Edema Neurologic/Psychiatric: Alert, Oriented x3 Skin: normal color, warm/dry Lymphatic: No Adenopathy Focused Exam Lactic Acid Level Progress/Results/Core Measures Suspected Sepsis Recent Fever Within 48 Hours: Yes Infection Criteria Present: Suspected New Infection New/Unexplained Altered Menta: No Sepsis Screen: Possible Sepsis Risk Sepsis Diagnosis: SIRS Temperature:101.3 Pulse: 117 Respiratory Rate: 18 Laboratory Tests 12/11/16 03:00: White Blood Count 1.7L Blood Pressure 142 /89 Mean: 106 Laboratory Tests 12/11/16 03:00: Creatinine 0.95, INR Comment 1.2, Platelet Count 229, Total Bilirubin 0.4 Results/Orders Lab Results Laboratory Tests Test 12/11/16 03:00 12/11/16 04:45 Range/Units White Blood Count 1.7 L 4.3-11.0 10^3/uL Red Blood Count 3.54 L 4.35-5.85 10^6/uL Hemoglobin 9.5 #L 13.3-17.7 G/DL Hematocrit 29 L 40-54 % Mean Corpuscular Volume 81 80-99 FL Mean Corpuscular Hemoglobin 27 25-34 PG Mean Corpuscular Hemoglobin Concent 33 32-36 G/DL Red Cell Distribution Width 12.9 10.0-14.5 % Platelet Count 229 130-400 10^3/uL Mean Platelet Volume 9.2 7.4-10.4 FL Neutrophils (%) (Auto) 48 42-75 % Lymphocytes (%) (Auto) 37 12-44 % Monocytes (%) (Auto) 14 H 0-12 % Eosinophils (%) (Auto) 1 0-10 % Basophils (%) (Auto) 1 0-10 % Neutrophils # (Auto) 0.8 L 1.8-7.8 X 10^3 Lymphocytes # (Auto) 0.6 L 1.0-4.0 X 10^3 Monocytes # (Auto) 0.2 0.0-1.0 X 10^3 Eosinophils # (Auto) 0.0 0.0-0.3 10^3/uL Basophils # (Auto) 0.0 0.0-0.1 10^3/uL Prothrombin Time 14.9 H 12.2-14.7 SEC INR Comment 1.2 0.8-1.4 Activated Partial Thromboplast Time 39 H 24-35 SEC Sodium Level 132 L 135-145 MMOL/L Potassium Level 3.7 3.6-5.0 MMOL/L Chloride Level 98 98-107 MMOL/L Carbon Dioxide Level 22 21-32 MMOL/L Anion Gap 12 5-14 MMOL/L Blood Urea Nitrogen 14 7-18 MG/DL Creatinine 0.95 0.60-1.30 MG/DL Estimat Glomerular Filtration Rate > 60 BUN/Creatinine Ratio 15 Glucose Level 117 H 70-105 MG/DL Lactic Acid Level 0.67 0.50-2.00 MMOL/L Calcium Level 8.3 L 8.5-10.1 MG/DL Total Bilirubin 0.4 0.1-1.0 MG/DL Aspartate Amino Transf (AST/SGOT) 19 5-34 U/L Alanine Aminotransferase (ALT/SGPT) 16 0-55 U/L Alkaline Phosphatase 97 40-136 U/L Total Protein 5.5 L 6.4-8.2 GM/DL Albumin 2.8 L 3.2-4.5 GM/DL Urine Color YELLOW Urine Clarity CLEAR Urine pH 5 5-9 Urine Specific [place] 1.025 H 1.016-1.022 Urine Protein 2+ H NEGATIVE Urine Glucose (UA) NEGATIVE NEGATIVE Urine Ketones NEGATIVE NEGATIVE Urine Nitrite NEGATIVE NEGATIVE Urine Bilirubin NEGATIVE NEGATIVE Urine Urobilinogen NORMAL NORMAL MG/DL Urine Leukocyte Esterase NEGATIVE NEGATIVE Urine RBC (Auto) NEGATIVE NEGATIVE Urine RBC NONE /HPF Urine WBC NONE /HPF Urine Squamous Epithelial Cells RARE /HPF Urine Crystals NONE /LPF Urine Bacteria NEGATIVE /HPF Urine Casts NONE /LPF Urine Mucus NEGATIVE /LPF Urine Culture Indicated NO My Orders Orders - JOSHUA DEL ROSARIO Cbc With Automated Diff (12/11/16 03:01) Comprehensive Metabolic Panel (12/11/16 03:01) Lactic Acid Analyzer (12/11/16 03:01) Blood Culture (12/11/16 03:01) Sputum Culture (12/11/16 03:01) Ua Culture If Indicated (12/11/16 03:01) Protime With Inr (12/11/16 03:01) Partial Thromboplastin Time (12/11/16 03:01) O2 (12/11/16 03:01) Acetaminophen Tablet (Tylenol Tablet) (12/11/16 03:15) Saline Lock/Iv-Start (12/11/16 03:01) Saline Lock/Iv-Start (12/11/16 03:01) Vital Signs Adult Sepsis Patie Q1HR (12/11/16 03:01) Remove Rings In Anticipation O (12/11/16 03:01) Ns Iv 1000 Ml (Sodium Chloride 0.9%) (12/11/16 03:01) Cefepime Injection (Maxipime Injection) (12/11/16 05:30) Piperacillin Sodium/Tazobactam (Zosyn Vi (12/11/16 05:45) General/Regular (12/11/16 Lunch) Medications Given in ED Current Medications Medications Dose Ordered Sig/Obdulia Route Start Time Stop Time Status Last Admin Dose Admin Acetaminophen 1,000 mg ONCE PRN PO 12/11/16 03:15 12/11/16 03:15 DC 12/11/16 03:10 1,000 MG Cefepime HCl 2000 mg/Sodium Chloride 50 ml @ 100 mls/hr ONCE ONCE IV 12/11/16 05:30 12/11/16 05:59 DC 12/11/16 05:35 100 MLS/HR Piperacillin Sod/ Tazobactam Sod 4.5 gm/Sodium Chloride 100 ml @ 200 mls/hr ONCE ONCE IV 12/11/16 05:45 12/11/16 06:14 DC 12/11/16 06:05 200 MLS/HR Vital Signs/I&O Vital Sign - Last 12Hours 12/11/16 12/11/16 12/11/16 02:39 03:00 04:05 Temp 101.3 100.0 Pulse 117 106 Resp 18 18 B/P (MAP) 142/89 143/80 Pulse Ox 97 96 98 O2 Delivery Room Air Capillary Refill : Less Than 3 Seconds Blood Pressure Mean: 106 Progress Note #1: Time: 03:05 Progress Note Low-grade fever could be from pulmonary embolism but with his fever and dysuria symptoms we will get a septic workup. I called [phone] to see if I could speak to the on-call physician and learn anything from the workup that was done at there might a distal day. If the CTA was done today there be little reason to repeat chest x-ray if it does not show any evidence of pneumonia. Page was put out to the doctor who spoke with the patient. 0310: Spoke with Bandar owens the on-call oncology fellow. He recommended if the patient's labs looked okay that he to be just sent out with by mouth antibiotics and follow-up with his local oncology. Had nothing further chair. Progress Note #2: Time: 05:34 Progress Note Luekopenia and fever. Called Dr. Giang who recommends a patient transfer back to . As of yet no source identified. Called [facility] Xfer line. Evelia said they would be excision take the patient back but they just came off diversion and it may be a bit for they have beds open up. Progress Note #3: Time: 06:38 Progress Note [facility] Dr. moran:n has accepted the patient and we have a bed. We're just waiting on transport. Patient is informed and doing well without any current complaints. Diet ordered. Progress Note #4: Time: 07:30 Progress Note The patient is stable and only pending ground transport up to . He has a bed. This is been communicated to Dr. Fish and his nurse Francisco is going to call on the status of his transport now. His vitals are good and he has no new acute concerns at this time. Progress Note #5: Time: 07:43 Progress Note Pt reported to me he had a fall on to his buttocks against the base of the side table. He felt fine and stood up to stretch his legs and felt dizzy and lost his balance. H e denies LOC or striking his head. He hurt his right glut but it is not needing anything for the pain. His BP was 140/80 and HR 106 and SpO2 96% . Buttocks unremarkable to inspection. Asked him to get help getting up from now on and to dangle legs over side and stand for 10 secs prior to walking. His Oral mucosa looks a little dry. He has had a liter of IVF. Will give him another liter now. Discussed with Dr. Fish. Transfer of Care Transfer of Care Time: 07:30 Care transferred to: [place] Departure Impression Impression: Primary Impression: Neutropenic fever Disposition: 02 XFER SHT-TRM HOSP ([facility]) Condition: Stable Transfer Transfer Notes Spoke with [facility] and [employer]ia [employer] and they have an oncologist Dr. Pierre accepting the transfer. We now have a bed. [facility] ground ambulance should be available after 8 AM. Transfer Facility: [facility] Method of Transfer: EMS ([facility]) Departure-Patient Inst. Referrals: NO,LOCAL PHYSICIAN (PCP/Family) Primary Care Physician JOSHUA DEL ROSARIO Dec 11, 2016 03:01
[2016-12-11 03:14] LABS: BASOPHILS % (AUTO) 1 % (0-10); EOSINOPHILS % (AUTO) 1 % (0-10); LYMPHOCYTES # (AUTO) 0.6 X 10^3 (1.0-4.0); LYMPHOCYTES % (AUTO) 37 % (12-44); MEAN CORPUSCULAR HEMOGLOBIN 27 PG (25-34); MEAN CORPUSCULAR HGB CONC 33 G/DL (32-36); MEAN CORPUSCULAR VOLUME 81 FL (80-99); MEAN PLATELET VOLUME 9.2 FL (7.4-10.4); MONOCYTES # (AUTO) 0.2 X 10^3 (0.0-1.0); MONOCYTES % (AUTO) 14 % (0-12); NEUTROPHILS # (AUTO) 0.8 X 10^3 (1.8-7.8); NEUTROPHILS % (AUTO) 48 % (42-75); PLATELET COUNT 229 10^3/uL (130-400); RED BLOOD COUNT 3.54 10^6/uL (4.35-5.85); RED CELL DISTRIBUTION WIDTH 12.9 % (10.0-14.5); WHITE BLOOD COUNT 1.7 10^3/uL (4.3-11.0)
[2016-12-11] MEDS ORDERED: ACETAMINOPHEN 500 MG TAB (TYLENOL) PO PRN (03:15)
[2016-12-11 03:24] LABS: INR 1.2 (0.8-1.4); PROTHROMBIN TIME PATIENT 14.9 SEC (12.2-14.7)
[2016-12-11 03:34] LABS: ALANINE AMINOTRANSFERASE 16 U/L (0-55); ALBUMIN 2.8 GM/DL (3.2-4.5); ANION GAP 12 MMOL/L (5-14); ASPARTATE AMINO TRANSFERASE 19 U/L (5-34); BILIRUBIN,TOTAL 0.4 MG/DL (0.1-1.0); BLOOD UREA NITROGEN 14 MG/DL (7-18); BUN/CREATININE RATIO 15; CALCIUM 8.3 MG/DL (8.5-10.1); CARBON DIOXIDE 22 MMOL/L (21-32); CHLORIDE 98 MMOL/L (98-107); CREATININE SERUM 0.95 MG/DL (0.60-1.30); GFR ESTIMATED > 60; GLUCOSE 117 MG/DL (70-105); POTASSIUM 3.7 MMOL/L (3.6-5.0); SODIUM 132 MMOL/L (135-145); TOTAL PROTEIN 5.5 GM/DL (6.4-8.2)
[2016-12-11 04:54] LABS: BILIRUBIN,URINE NEGATIVE (NEGATIVE); KETONES,URINE NEGATIVE (NEGATIVE); LEUKOCYTE ESTERASE ,URINE NEGATIVE (NEGATIVE); NITRITE,URINE NEGATIVE (NEGATIVE); PH,URINE 5 (5-9); PROTEIN,URINE 2+ (NEGATIVE); UROBILINOGEN,URINE NORMAL (NORMAL)
[2016-12-11 05:01] LABS: SQUAMOUS EPITHELIAL CELL,UR RARE /HPF
[2016-12-11] MEDS ORDERED: VANCOMYCIN INJECTION 1,500 MG in NS IV 500 ML 500 ML IV SCH (05:30)
[2016-12-11] MEDS ORDERED: CEFEPIME INJECTION 2,000 MG in NS (IVPB) 50 ML IV ONE (05:30)
[2016-12-11] MEDS ORDERED: PIPERACILLIN SODIUM/TAZOBACTAM 4.5 GM in NS (IVPB) 100 ML IV ONE (05:45)
[2016-12-11] MEDS ORDERED: NS IV 1000 ML 1,000 ML ONE (07:44)
[2016-12-11] MEDS ORDERED: NS IV 1000 ML 1,000 ML IV ONE (07:47)
[2016-12-11 09:00] VITALS: BP 139/81
--- OUTSIDE RECORDS SUMMARY | 2016-12-14 08:40 | XMS REPORT | Continuity of Care Document ---
Author Author [facility] Organization [facility] Address Unknown Phone Unavailable Care Team Providers Care Transcribing Machine Operator Name Role Phone No Pcp, Na PCP Unavailable Source Comments Some departments are not documenting in the electronic medical record. If you do not see the information that you expected, contact Release of Information in the Health Information Management department at [phone] for further assistance in locating additional records.[facility] Active Allergies and Adverse Reactions No Known Allergies Current Medications Prescription Sig. Disp. Refills Start End Date Status Date oxyCODONE (ROXICODONE, Take 1-2 Tabs by mouth 60 Tab 0 20 Discontin OXY-IR) 5 mg tablet every 4 hours as needed 17 17 ued IBUPROFEN (ADVIL PO) Take 3-4 Tabs by mouth as 12/11/19 Discontin Needed. 17 ued oxyCODONE (ROXICODONE, Take 1 Tab by mouth every 180 Tab 0 11/25/19 Suspended OXY-IR) 15 mg tablet 4 hours as needed for 17 Pain gabapentin (NEURONTIN) Take 1 Cap by mouth every 90 Cap 3 11/25/19 Suspended 300 mg capsule 8 hours. 17 dexamethasone (DECADRON) Take 2 Tabs by mouth 36 Tab 5 11/25/19 Suspended 4 mg tablet daily. On Days 2-4 of 17 each cycle. ondansetron (ZOFRAN) 8 mg Take 1 Tab by mouth every 30 Tab 5 11/25/19 Suspended tablet 8 hours as needed (nausea 17 and vomiting). prochlorperazine maleate Take 1 Tab by mouth every 30 Tab 2 11/27/19 Suspended (COMPAZINE) 10 mg tablet 6 hours as needed. 17 lidocaine/prilocaine apply 1 hour prior to 30 g 1 11/27/19 Suspended (EMLA) 2.5/2.5 % topical port access and cover 17 cream montelukast (SINGULAIR) Take 1 Tab by mouth 30 Tab 3 12/03/19 Suspended 10 mg tablet daily. 17 loratadine (CLARITIN) 10 Take 1 Tab by mouth every 30 Tab 3 12/03/19 12/03/19 Discontin mg tablet morning. 17 17 ued ascorbic acid (VITAMIN C) Take 500 mg by mouth Suspended 500 mg tablet daily. ibuprofen (ADVIL) 200 mg Take 600 mg by mouth Suspended tablet every 6 hours as needed for Pain. Take with food. enoxaparin (LOVENOX) 80 Inject 0.8 mL under the 60 Syringe 2 12/11/19 12/11/19 Discontin mg syrg skin twice daily. 17 17 ued enoxaparin (LOVENOX) 80 Inject 0.8 mL under the 60 Syringe 2 12/11/19 Suspended mg syrg skin twice daily. . 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 Mitotic rate was 75/10HPF. FISH [...] and discomfort. 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 Sure enough, CT 11/24/16 after just ~3 months after surgery showed large recurrent RP mass, with development of peritoneal metastatic disease, but no evidence of thoracic metastatic disease. In with sister, as there is some conflict ongoing at home with his . His mother plans on moving in from [place] to help relieve some stress/pressure off family. 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, s/p [id number] margins with resection 08/23/16, now with recurrent [...] Recent Encounters Date Type Specialty Providers Description 12/11/2016 [facility] Patrick Pierre MD Fever Encounter Jimi Horton MD 12/10/2016 Telephone Oncology Omi Rees Hospitalized Patient MD Rm 12/09/2016 [facility] Peg Gaimno MD Sarcoma (HCC) - Encounter Jimi Horton MD 12/10/2016 12/09/2016 Telephone Oncology Omi Rees Care Coordination MD Rm 12/09/2016 Telephone Omi Peter Hospitalized Patient MD Rm 12/09/2016 Hospital Radiology Arrived Encounter 12/09/2016 Ancillary Radiology Outpatient, Radiologist Diagnosis unknown Orders (Primary Dx) 12/08/2016 Telephone Oncology Omi Rees Recent Hospitalization [...] Omi Peter Medication Follow-up MD Rm 12/01/2016 [facility] Oncology Omi Rees Encounter MD Rm 11/30/2016 [facility] Radiology Omi Rees Encounter MD Chaka Abdalla Kit Fahrbach, Thomas, MD 11/29/2016 [facility] Cardiology Omi Rees Encounter MD Rm 11/29/2016 Office Visit Anesthesia Pain Dale Cool MD Pleomorphic cell sarcoma (HCC) (Primary Dx); Cancer related pain; Neuropathic pain 11/29/2016 Documentation Oncology Lissette Franklin 11/26/2016 Office Visit Oncology Melania He APRN Pleomorphic cell sarcoma (HCC) (Primary Dx) 11/26/2016 [facility] Oncology Melania He APRN Encounter 11/25/2016 Documentation Oncology Lissette Franklin 11/24/2016 Office Visit Oncology Omi Rees Pleomorphic cell sarcoma MD Rm (HCC) (Primary Dx) 11/24/2016 [facility] Radiology Omi Rees Encounter MD Rm 11/24/2016 Documentation Oncology Lissette Franklin 11/24/2016 Orders Only Oncology Sherin Booker [facility] 11/24/2016 Screening Form 09/28/2016 Documentation Oncology Lissette Franklin Social History Tobacco Use Types Packs/Day Years Used Date Never Smoker Smokeless Tobacco: Never Used Alcohol Use Drinks/Week oz/Week Comments No Last Filed Vital Signs Vital Sign Reading Time Taken Blood Pressure 133/68 12/14/2016 5:22 AM CDT Pulse 103 12/14/2016 5:22 AM CDT Temperature 37.6 C (99.7 F) 12/14/2016 5:22 AM CDT Respiratory Rate 18 12/01/2016 10:17 AM CDT Height 1.753 m (5' 9.02") 12/12/2016 1:44 AM CDT Weight 83.4 kg (183 lb 13.8 oz) 12/12/2016 1:44 AM CDT Body Mass Index 27.14 12/12/2016 1:44 AM CDT Oxygen Saturation 92% 12/14/2016 5:22 AM CDT Plan of Care Health Maintenance Due Date Last Done Comments Physical (Comprehensive) 1977 Exam Pertussis Vaccine 1981 Tetanus Vaccine 10/07/1987 Influenza Vaccine 02/04/2017 Procedures from Last 3 Months * The patient is currently admitted. The information in this section might not be complete until the patient is discharged. Procedure Name Priority Date/Time Associated Diagnosis Comments ECG-SCAN 12/11/2016 Results for this 10:59 AM CDT procedure are in the results section. Results from Last 3 Months * CHEST 2 VIEWS (12/14/2016 5:34 AM) Only the most recent of 3 results within the time period is included. Impressions Stable chest radiograph demonstrating persistent zones of atelectasis in lower lobes, right greater than left with no significant change since the prior examination. Finalized by Nick Chambers M.D. on 12/14/2016 6:35 AM. Dictated by Nick Chambers M.D. on 12/14/2016 6:33 AM. Narrative CHEST 2 VIEWS History: Fever. Atelectasis Technique: PA and lateral views of the chest were obtained. Comparison: Comparison is made to an examination of 12/11/2016. Findings: The heart size remains normal. There is no vascular congestion. No acute interstitial or alveolar opacities are identified. There are persistent zones of atelectasis in the lower lobes bilaterally, right greater than left. No significant pleural effusions are seen. No pneumothorax is identified. Right jugular Fypbfa-v-Iwrc catheter remains in place with its tip at the level of the low SVC. Procedure Note Interface, Radiant Results - TueDec 14, 2016 6:38 AM CDT CHEST 2 VIEWS History: Fever. Atelectasis Technique: PA and lateral views of the chest were obtained. Comparison: Comparison is made to an examination of 12/11/2016. Findings: The heart size remains normal. There is no vascular congestion. No acute interstitial or alveolar opacities are identified. There are persistent zones of atelectasis in the lower lobes bilaterally, right greater than left. No significant pleural effusions are seen. No pneumothorax is identified. Right jugular Bolpom-n-Ijdm catheter remains in place with its tip at the level of the low SVC. IMPRESSION Stable chest radiograph demonstrating persistent zones of atelectasis in lower lobes, right greater than left with no significant change since the prior examination. Finalized by Nick Chambers M.D. on 12/14/2016 6:35 AM. Dictated by Nick Chambers M.D. on 12/14/2016 6:33 AM. * URINALYSIS MICROSCOPIC REFLEX TO CULTURE (12/14/2016 4:15 AM) Only the most recent of 3 results within the time period is included. Component Value Range WBCs,UA 0-2 0-2 /HPF RBCs,UA 0-2 0-3 /HPF Comment,UA Urine submitted for reflex culture if criteria are met:WBC>10, positive nitrite and/or >=1+ leukocyte esterase. If quantity is not sufficient, an addendum will follow. MucousUA TRACE Specimen Urine * URINALYSIS DIPSTICK REFLEX TO CULTURE (12/14/2016 4:15 AM) Only the most recent of 3 results within the time period is included. Component Value Range Color,UA STRAW Turbidity,UA CLEAR CLEAR-CLEAR Specific [place]-Urine 1.006 1.003-1.035 pH,UA 6.0 5.0-8.0 Protein,UA NEG NEG-NEG Glucose,UA NEG NEG-NEG Ketones,UA NEG NEG-NEG Bilirubin,UA NEG NEG-NEG Blood,UA NEG NEG-NEG Urobilinogen,UA NORMAL NORM-NORMAL Nitrite,UA NEG NEG-NEG Leukocytes,UA NEG NEG-NEG Urine Ascorbic Acid, UA NEG NEG-NEG Specimen Urine * MAGNESIUM (12/14/2016 4:15 AM) Only the most recent of 5 results within the time period is included. Component Value Range Magnesium 1.7 1.6-2.6 mg/dL Specimen Blood * COMPREHENSIVE METABOLIC PANEL (12/14/2016 4:15 AM) Only the most recent of 7 results within the time period is included. Component Value Range Sodium 129 (L) 137-147 MMOL/L Potassium 4.4 3.5-5.1 MMOL/L Chloride 95 (L) 98-110 MMOL/L Glucose 127 (H) 70-100 MG/DL Blood Urea Nitrogen 13 7-25 MG/DL Creatinine 1.14 0.4-1.24 MG/DL Calcium 8.2 (L) 8.5-10.6 MG/DL Total Protein 5.4 (L) 6.0-8.0 G/DL Total Bilirubin 0.3 0.3-1.2 MG/DL Albumin 2.6 (L) 3.5-5.0 G/DL Alk Phosphatase 101 25-110 U/L AST (SGOT) 34 7-40 U/L CO2 27 21-30 MMOL/L ALT (SGPT) 33 7-56 U/L Anion Gap 7 3-12 eGFR Non >60Comment: >60 mL/min The eGFR is not [...] questions. Specimen Blood * CBC AND DIFF (12/14/2016 4:15 AM) Only the most recent of 7 results within the time period is included. Component Value Range White Blood Cells 7.1 4.5-11.0 K/UL RBC 3.41 (L) 4.4-5.5 M/UL Hemoglobin 9.4 (L) 13.5-16.5 GM/DL Hematocrit 28.0 (L) 40-50 % MCV 82.2 80-100 FL MCH 27.6 26-34 PG MCHC 33.6 32.0-36.0 G/DL RDW 14.3 11-15 % Platelet Count 565 (H) 150-400 K/UL MPV 6.9 (L) 7-11 FL Nucleated RBCs 1 K/UL Segmented Neutrophils 43 41-77 % Bands 12 (H) 0-10 % Lymphocytes 16 (L) 24-44 % Monocytes 28 (H) 4-12 % Eosinophil 1 0-5 % ANISO PRESENT POIK PRESENT POLY PRESENT Ovalocyte PRESENT Platelet Estimate MOD INC Absolute Neutrophil Count 3.90 1.8-7.0 K/UL Manual Specimen Blood * TROPONIN-I (12/13/2016 3:18 PM) Component Value Range Troponin-I 0.01 0.0-0.05 NG/ML Specimen Blood * LACTIC ACID(LACTATE) (12/11/2016 2:10 PM) Component Value Range Lactic Acid 0.6 0.5-2.0 MMOL/L Specimen Blood * PROTIME INR (PT) (12/11/2016 2:10 PM) Only the most recent of 2 results within the time period is included. Component Value Range INR 1.3 (H) 0.8-1.2 Specimen Blood * URINALYSIS, MICROSCOPIC (12/11/2016 12:20 PM) Component Value Range WBCs,UA 0-2 0-2 /HPF RBCs,UA 0-2 0-3 /HPF MucousUA TRACE Specimen Urine * URINALYSIS DIPSTICK (12/11/2016 12:20 PM) Component Value Range Color,UA STRAW Turbidity,UA CLEAR CLEAR-CLEAR Specific [place]-Urine 1.009 1.003-1.035 pH,UA 6.0 5.0-8.0 Protein,UA NEG NEG-NEG Glucose,UA NEG NEG-NEG Ketones,UA NEG NEG-NEG Bilirubin,UA NEG NEG-NEG Blood,UA NEG NEG-NEG Urobilinogen,UA NORMAL NORM-NORMAL Nitrite,UA NEG NEG-NEG Leukocytes,UA NEG NEG-NEG Urine Ascorbic Acid, UA NEG NEG-NEG Specimen Urine * CULTURE-URINE W/SENSITIVITY (12/11/2016 12:20 PM) Component Value Range Battery Name URINE CULTURE Specimen Description URINE Special Requests NONE Culture NO GROWTH Report Status FINAL 12/12/2016 Specimen Urine * ECG-SCAN (12/11/2016 10:59 AM) Narrative Ordered by an unspecified provider. * CTA CHEST WO/W CONTRAST+POST IMPRESSION (12/10/2016 11:28 AM) Impressions 1. Development of multiple bilateral pulmonary emboli. 2. Development of scattered, subpleural predominantareas of consolidation and groundglass opacity, likely infarcts. 3. Slight increase in size and conspicuity of a right upper lobe nodule, suspicious for metastatic disease. Follow-up CT chest in 2-3 months is recommended for reevaluation. 4. Partial visualization of a large right retroperitoneal mass, as well as peritoneal implants and trace upper abdominal ascites. Findings were discussed with Dr. Breckenridge by telephone at 11:46 PM on 12/10/2016. Finalized by APOLINAR RAMOS M.D. on 12/10/2016 11:48 AM. Dictated by APOLINAR RAMOS M.D. on 12/10/2016 11:26 AM. Narrative CTA Chest Clinical Indication: Pleuritic chest pain. Pleomorphic cell sarcoma. Technique: Multiple contiguous axial CT images were obtained through the chest following the administration of IV contrast. Post processing coronal and sagittal reconstruction images were made from the axial images.Image post- processing was obtained. Sagittal and coronal MIP reconstruction was performed IV contrast:[Isovue] Comparison: Chest radiograph 12/09/2016, and outside CT chest of 12/07/2016 Findings: Axilla, Mediastinum and Yeny: There is no axillary adenopathy. Few prominent hilar nodes are present. No mediastinal adenopathy is seen. Heart and Great Vessels: The heart size is within normal limits. A right IJ chest port catheter remains in place. Multiple occlusive and nonocclusive segmental and subsegmental pulmonary emboli are present throughout both lungs. There is no significant pericardial effusion. Airway, Lungs and Pleura: There has been development of subpleural consolidation within the lateral aspect of the right lower lobe. Scattered additional, subpleural predominant areas of consolidation and round glass opacity are present throughout both lungs. Atelectasis within the medial right lower lobe has slightly increased. Trace right pleural effusion is present. A 0.4 cm right upper lobe nodule is seen on image 13 series 5, which has increased in size and conspicuity since the CT chest of 11/24/2016. There has been development of few additional nodular opacities within the right upper lobe (for example images 16 and 18 series 5). Upper Abdomen: There is partial visualization of a large, heterogeneous right retroperitoneal mass. Low-attenuation is again seen along the hepatic capsule, likely peritoneal implants. Trace upper abdominal free fluid is present. Chest Wall and Osseous Structures: No destructive osseous lesion is seen. Procedure Note Interface, Radiant Results - TueDec 10, 2016 11:51 AM CDT CTA Chest Clinical Indication: Pleuritic chest pain. Pleomorphic cell sarcoma. Technique: Multiple contiguous axial CT images were obtained through the chest following the administration of IV contrast. Post processing coronal and sagittal reconstruction images were made from the axial images. Image post- processing was obtained. Sagittal and coronal MIP reconstruction was performed IV contrast:[Isovue] Comparison: Chest radiograph 12/09/2016, and outside CT chest of 12/07/2016 Findings: Axilla, Mediastinum and Yeny: There is no axillary adenopathy. Few prominent hilar nodes are present. No mediastinal adenopathy is seen. Heart and Great Vessels: The heart size is within normal limits. A right IJ chest port catheter remains in place. Multiple occlusive and nonocclusive segmental and subsegmental pulmonary emboli are present throughout both lungs. There is no significant pericardial effusion. Airway, Lungs and Pleura: There has been development of subpleural consolidation within the lateral aspect of the right lower lobe. Scattered additional, subpleural predominant areas of consolidation and round glass opacity are present throughout both lungs. Atelectasis within the medial right lower lobe has slightly increased. Trace right pleural effusion is present. A 0.4 cm right upper lobe nodule is seen on image 13 series 5, which has increased in size and conspicuity since the CT chest of 11/24/2016. There has been development of few additional nodular opacities within the right upper lobe (for example images 16 and 18 series 5). Upper Abdomen: There is partial visualization of a large, heterogeneous right retroperitoneal mass. Low-attenuation is again seen along the hepatic capsule, likely peritoneal implants. Trace upper abdominal free fluid is present. Chest Wall and Osseous Structures: No destructive osseous lesion is seen. IMPRESSION 1. Development of multiple bilateral pulmonary emboli. 2. Development of scattered, subpleural predominant areas of consolidation and groundglass opacity, likely infarcts. 3. Slight increase in size and conspicuity of a right upper lobe nodule, suspicious for metastatic disease. Follow-up CT chest in 2-3 months is recommended for reevaluation. 4. Partial visualization of a large right retroperitoneal mass, as well as peritoneal implants and trace upper abdominal ascites. Findings were discussed with Dr. Horton by telephone at 11:46 PM on 12/10/2016. Finalized by APOLINAR RAMOS M.D. on 12/10/2016 11:48 AM. Dictated by APOLINAR RAMOS M.D. on 12/10/2016 11:26 AM. * RVP VIRAL PANEL PCR (12/10/2016 12:40 AM) Component Value Range Specimen Source NASAL WASH Adenovirus NOT DETECTED Coronavirus 229E NOT DETECTED Coronavirus HKU1 NOT DETECTED Coronavirus NL63 NOT DETECTED Coronavirus OC43 NOT DETECTED Human Metapneumovirus NOT DETECTED Human NOT DETECTED Rhinovirus/ENTEROVIRUS Influenza A H1N1 2009 NOT DETECTED Influenza A H1 NOT DETECTED Influenza A H3 NOT DETECTED Influenza B NOT DETECTED Parainfluenza 1 NOT DETECTED Parainfluenza 2 NOT DETECTED Parainfluenza 3 NOT DETECTED Parainfluenza 4 NOT DETECTED RSV NOT DETECTED Bordetella Pertussis NOT DETECTED Chlamydophila Pneumoniae NOT DETECTED Mycoplasma Pneumoniae NOT DETECTED Specimen Nasal Wash * LEGIONELLA ANTIGEN URINE,RAN (12/09/2016 11:13 PM) Component Value Range Battery Name LEGIONELLA URINE ANTIGEN Specimen Description URINE Special Requests NONE Antigen NEGATIVE Report Status FINAL 12/10/2016 Specimen Urine * STREPTOCOCCUS PNEUMO AG, URINE (12/09/2016 11:13 PM) Component Value Range Battery Name STREP PNEUMO AG, UR Specimen Description URINE Special Requests NONE Antigen NEGATIVE Report Status FINAL 12/10/2016 Specimen Urine * PHOSPHORUS (12/09/2016 9:27 PM) Component Value Range Phosphorus 3.0 2.0-4.0 MG/DL Specimen Blood * PTT (APTT) (12/09/2016 9:27 PM) Component Value Range APTT 25.2 24.0-40.0 SEC Specimen Blood * GENERAL RAD CHEST EXTERNAL IMAGING (12/09/2016) Narrative This order has been auto finalized and does not contain a result. * GENERAL RAD ABDOMEN EXTERNAL IMAGING (12/07/2016 [...] 11/30/2016 CLINICAL INDICATION: Pleomorphic cell sarcoma, chemotherapy [employer]IGH [employer] CHEMI[employer]Y TEACHER:Omi Keith M.D. and Deangelo Green M.D. SEDATION: [...] mcg IV Fentanyl. CATHETER: 24.5 cm 8 Hungarian power port PUNCTURE SITE: Right internal jugular [...] The needle was exchanged for a 5 Hungarian coaxial dilator. Attention was turned to the [...] 11/30/2016 CLINICAL INDICATION: Pleomorphic cell sarcoma, chemotherapy [employer]IGH SCHO[employer] CHEMISTRY TEACHER: Omi Keith M.D. and Deangelo Green M.D. [...] mcg IV Fentanyl. CATHETER: 24.5 cm 8 Hungarian power port PUNCTURE SITE: Right internal jugular [...] The needle was exchanged for a 5 Hungarian coaxial dilator. Attention was turned to the [...] dimensions 8. Normal global strain pattern * CT ABD/PELV W CONTRAST (11/24/2016 11:15 [...]
--- OUTSIDE RECORDS SUMMARY | 2016-12-14 08:41 | XMS REPORT | Continuity of Care Document ---
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 12/07/2016 KATINA BROWNE DO Ot 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4 10*3/ uL 4.3-11.0 Blood erythrocytes automated count (number/volume) 5.30 10*6 /uL 4.35-5.85 Venous blood hemoglobin measurement (mass/volume) 14.5 g/dL 13.3-17.7 Blood hematocrit (volume fraction) 43 % 40-54 Automated erythrocyte mean corpuscular volume 80 [foz_us] 80-99 Automated erythrocyte mean corpuscular hemoglobin (mass per erythrocyte) 27 pg 25-34 Automated erythrocyte mean corpuscular hemoglobin concentration measurement ( mass/volume) 34 g/dL 32-36 Automated erythrocyte distribution width ratio 13.3 % 10.0-14.5 Automated blood platelet count (count/volume) 332 10*3/uL 130-400 Automated blood platelet mean volume measurement 9.0 [foz_us ] 7.4-10.4 Automated blood neutrophils/100 leukocytes 89 % 42-75 Automated blood lymphocytes/100 leukocytes 9 % 12-44 Blood monocytes/100 leukocytes 1 % 0-12 Automated blood eosinophils/100 leukocytes 1 % 0-10 Automated blood basophils/100 leukocytes 0 % 0-10 Blood neutrophils automated count (number/volume) 10.2 10*3 1.8-7.8 Blood lymphocytes automated count (number/volume) 1.0 10*3 1.0-4.0 Blood monocytes automated count (number/volume) 0.1 10*3 0.0-1.0 Automated eosinophil count 0.1 10*3/uL 0.0-0.3 Automated blood basophil count (count/volume) 0.0 10*3/uL 0.0-0.1 PT panel in platelet poor plasma by coagulation assay - 12/07/16 05:05 Prothrombin time (PT) in platelet poor plasma by coagulation assay 13.3 s 12.2-14.7 INR in platelet poor plasma or blood by coagulation assay 1.0 0.8-1.4 Activated partial thromboplastin time (aPTT) in platelet poor plasma bycoagulation assay - 12/07/16 05:05 Activated partial thromboplastin time (aPTT) in platelet poor plasma bycoagulation assay 28 s 24-35 Comprehensive metabolic panel - 12/07/16 05:05 Serum or plasma sodium measurement (moles/volume) 133 mmol/ L 135-145 Serum or plasma potassium measurement (moles/volume) 4.6 mmol/L 3.6-5.0 Serum or plasma chloride measurement (moles/volume) 96 mmol/ L 98-107 Carbon dioxide 26 mmol/L 21-32 Serum or plasma anion gap determination (moles/volume) 11 mmol/L 5-14 Serum or plasma urea nitrogen measurement (mass/volume) 20 mg/dL 7-18 Serum or plasma creatinine measurement (mass/volume) 1.08 mg /dL 0.60-1.30 Serum or plasma urea nitrogen/creatinine mass ratio 19 NRG Serum or plasma creatinine measurement with calculation of estimated glomerular filtration rate > NRG Serum or plasma glucose measurement (mass/volume) 134 mg/dL 70-105 Serum or plasma calcium measurement (mass/volume) 9.7 mg/dL 8.5-10.1 Serum or plasma total bilirubin measurement (mass/volume) 0.5 mg/dL 0.1-1.0 Serum or plasma alkaline phosphatase measurement (enzymatic activity/volume) 111 U/L 40-136 Serum or plasma aspartate aminotransferase measurement (enzymatic activity/ volume) 14 U/L 5-34 Serum or plasma alanine aminotransferase measurement (enzymatic activity/volume ) 14 U/L 0-55 Serum or plasma protein measurement (mass/volume) 7.3 g/dL 6.4-8.2 Serum or plasma albumin measurement (mass/volume) 3.6 g/dL 3.2-4.5 Magnesium - 12/07/16 05:05 Magnesium 2.0 mg/dL 1.8-2.4 Serum or plasma amylase measurement (enzymatic activity/volume) - 12/07/16 05: 05 Serum or plasma amylase measurement (enzymatic activity/volume) 18 U/L 25-125 Lipase - 12/07/16 05:05 Lipase < U/L 8-78 Complete urinalysis with reflex to culture - 12/07/16 05:10 Urine color determination YELLOW NRG Urine clarity determination CLEAR NRG Urine pH measurement by test strip 5 5- 9 Specific gravity of urine by test strip 1.020 1.016-1.022 Urine protein assay by test strip, semi-quantitative 2+ NEGATIVE Urine glucose detection by automated test strip NEGATIVE NEGATIVE Erythrocytes detection in urine sediment by light microscopy 1+ NEGATIVE Urine ketones detection by automated test strip NEGATIVE NEGATIVE Urine nitrite detection by test strip NEGATIVE NEGATIVE Urine total bilirubin detection by test strip NEGATIVE NEGATIVE Urine urobilinogen measurement by automated test strip (mass/volume) NORMAL NORMAL Urine leukocyte esterase detection by dipstick 1+ NEGATIVE Automated urine sediment erythrocyte count by microscopy (number/high power field) RARE NRG Automated urine sediment leukocyte count by microscopy (number/high power field ) NONE NRG Bacteria detection in urine sediment by light microscopy NEGATIVE NRG Squamous epithelial cells detection in urine sediment by light microscopy 0-2 NRG Crystals detection in urine sediment by light microscopy NONE NRG Casts detection in urine sediment by light microscopy NONE NRG Mucus detection in urine sediment by light microscopy NEGATIVE NRG Complete urinalysis with reflex to culture NO NRG Complete blood count (CBC) with automated white blood cell (WBC) differential - 12/09/16 03:31 Blood leukocytes automated count (number/volume) 5.7 10*3/ uL 4.3-11.0 Blood erythrocytes automated count (number/volume) 4.41 10*6 /uL 4.35-5.85 Venous blood hemoglobin measurement (mass/volume) 12.2 g/dL 13.3-17.7 Blood hematocrit (volume fraction) 35 % 40-54 Automated erythrocyte mean corpuscular volume 80 [foz_us] 80-99 Automated erythrocyte mean corpuscular hemoglobin (mass per erythrocyte) 28 pg 25-34 Automated erythrocyte mean corpuscular hemoglobin concentration measurement ( mass/volume) 35 g/dL 32-36 Automated erythrocyte distribution width ratio 12.9 % 10.0-14.5 Automated blood platelet count (count/volume) 248 10*3/uL 130-400 Automated blood platelet mean volume measurement 8.9 [foz_us ] 7.4-10.4 Automated blood neutrophils/100 leukocytes 84 % 42-75 Automated blood lymphocytes/100 leukocytes 13 % 12-44 Blood monocytes/100 leukocytes 2 % 0-12 Automated blood eosinophils/100 leukocytes 0 % 0-10 Automated blood basophils/100 leukocytes 1 % 0-10 Blood neutrophils automated count (number/volume) 4.8 10*3 1.8-7.8 Blood lymphocytes automated count (number/volume) 0.7 10*3 1.0-4.0 Blood monocytes automated count (number/volume) 0.1 10*3 0.0-1.0 Automated eosinophil count 0.0 10*3/uL 0.0-0.3 Automated blood basophil count (count/volume) 0.0 10*3/uL 0.0-0.1 Blood lactic acid measurement (moles/volume) - 12/09/16 03:31 Blood lactic acid measurement (moles/volume) 1.07 mmol/L 0.50-2.00 PT panel in platelet poor plasma by coagulation assay - 12/09/16 03:31 Prothrombin time (PT) in platelet poor plasma by coagulation assay 13.9 s 12.2-14.7 INR in platelet poor plasma or blood by coagulation assay 1.1 0.8-1.4 Activated partial thromboplastin time (aPTT) in platelet poor plasma bycoagulation assay - 12/09/16 03:31 Activated partial thromboplastin time (aPTT) in platelet poor plasma bycoagulation assay 31 s 24-35 Comprehensive metabolic panel - 12/09/16 03:31 Serum or plasma sodium measurement (moles/volume) 130 mmol/ L 135-145 Serum or plasma potassium measurement (moles/volume) 4.0 mmol/L 3.6-5.0 Serum or plasma chloride measurement (moles/volume) 93 mmol/ L 98-107 Carbon dioxide 25 mmol/L 21-32 Serum or plasma anion gap determination (moles/volume) 12 mmol/L 5-14 Serum or plasma urea nitrogen measurement (mass/volume) 21 mg/dL 7-18 Serum or plasma creatinine measurement (mass/volume) 1.07 mg /dL 0.60-1.30 Serum or plasma urea nitrogen/creatinine mass ratio 20 NRG Serum or plasma creatinine measurement with calculation of estimated glomerular filtration rate > NRG Serum or plasma glucose measurement (mass/volume) 120 mg/dL 70-105 Serum or plasma calcium measurement (mass/volume) 9.0 mg/dL 8.5-10.1 Serum or plasma total bilirubin measurement (mass/volume) 0.6 mg/dL 0.1-1.0 Serum or plasma alkaline phosphatase measurement (enzymatic activity/volume) 109 U/L 40-136 Serum or plasma aspartate aminotransferase measurement (enzymatic activity/ volume) 20 U/L 5-34 Serum or plasma alanine aminotransferase measurement (enzymatic activity/volume ) 17 U/L 0-55 Serum or plasma protein measurement (mass/volume) 6.7 g/dL 6.4-8.2 Serum or plasma albumin measurement (mass/volume) 3.2 g/dL 3.2-4.5 Bacterial blood culture - 12/09/16 03:31 Bacterial blood culture NG NRG Bacterial blood culture - 12/09/16 04:17 Bacterial blood culture NG NRG Complete urinalysis with reflex to culture - 12/09/16 06:10 Urine color determination YELLOW NRG Urine clarity determination CLEAR NRG Urine pH measurement by test strip 6.5 5 -9 Specific gravity of urine by test strip 1.015 1.016-1.022 Urine protein assay by test strip, semi-quantitative 2+ NEGATIVE Urine glucose detection by automated test strip NEGATIVE NEGATIVE Erythrocytes detection in urine sediment by light microscopy 1+ NEGATIVE Urine ketones detection by automated test strip NEGATIVE NEGATIVE Urine nitrite detection by test strip NEGATIVE NEGATIVE Urine total bilirubin detection by test strip NEGATIVE NEGATIVE Urine urobilinogen measurement by automated test strip (mass/volume) NORMAL NORMAL Urine leukocyte esterase detection by dipstick NEGATIVE NEGATIVE Automated urine sediment erythrocyte count by microscopy (number/high power field) RARE NRG Automated urine sediment leukocyte count by microscopy (number/high power field ) NONE NRG Bacteria detection in urine sediment by light microscopy NEGATIVE NRG Squamous epithelial cells detection in urine sediment by light microscopy NONE NRG Crystals detection in urine sediment by light microscopy NONE NRG Casts detection in urine sediment by light microscopy NONE NRG Mucus detection in urine sediment by light microscopy NEGATIVE NRG Complete urinalysis with reflex to culture NO NRG Complete blood count (CBC) with automated white blood cell (WBC) differential - 12/11/16 03:00 Blood leukocytes automated count (number/volume) 1.7 10*3/ uL 4.3-11.0 Blood erythrocytes automated count (number/volume) 3.54 10*6 /uL 4.35-5.85 Venous blood hemoglobin measurement (mass/volume) 9.5 g/dL 13.3-17.7 Blood hematocrit (volume fraction) 29 % 40-54 Automated erythrocyte mean corpuscular volume 81 [foz_us] 80-99 Automated erythrocyte mean corpuscular hemoglobin (mass per erythrocyte) 27 pg 25-34 Automated erythrocyte mean corpuscular hemoglobin concentration measurement ( mass/volume) 33 g/dL 32-36 Automated erythrocyte distribution width ratio 12.9 % 10.0-14.5 Automated blood platelet count (count/volume) 229 10*3/uL 130-400 Automated blood platelet mean volume measurement 9.2 [foz_us ] 7.4-10.4 Automated blood neutrophils/100 leukocytes 48 % 42-75 Automated blood lymphocytes/100 leukocytes 37 % 12-44 Blood monocytes/100 leukocytes 14 % 0-12 Automated blood eosinophils/100 leukocytes 1 % 0-10 Automated blood basophils/100 leukocytes 1 % 0-10 Blood neutrophils automated count (number/volume) 0.8 10*3 1.8-7.8 Blood lymphocytes automated count (number/volume) 0.6 10*3 1.0-4.0 Blood monocytes automated count (number/volume) 0.2 10*3 0.0-1.0 Automated eosinophil count 0.0 10*3/uL 0.0-0.3 Automated blood basophil count (count/volume) 0.0 10*3/uL 0.0-0.1 PT panel in platelet poor plasma by coagulation assay - 12/11/16 03:00 Prothrombin time (PT) in platelet poor plasma by coagulation assay 14.9 s 12.2-14.7 INR in platelet poor plasma or blood by coagulation assay 1.2 0.8-1.4 Activated partial thromboplastin time (aPTT) in platelet poor plasma bycoagulation assay - 12/11/16 03:00 Activated partial thromboplastin time (aPTT) in platelet poor plasma bycoagulation assay 39 s 24-35 Blood lactic acid measurement (moles/volume) - 12/11/16 03:00 Blood lactic acid measurement (moles/volume) 0.67 mmol/L 0.50-2.00 Comprehensive metabolic panel - 12/11/16 03:00 Serum or plasma sodium measurement (moles/volume) 132 mmol/ L 135-145 Serum or plasma potassium measurement (moles/volume) 3.7 mmol/L 3.6-5.0 Serum or plasma chloride measurement (moles/volume) 98 mmol/ L 98-107 Carbon dioxide 22 mmol/L 21-32 Serum or plasma anion gap determination (moles/volume) 12 mmol/L 5-14 Serum or plasma urea nitrogen measurement (mass/volume) 14 mg/dL 7-18 Serum or plasma creatinine measurement (mass/volume) 0.95 mg /dL 0.60-1.30 Serum or plasma urea nitrogen/creatinine mass ratio 15 NRG Serum or plasma creatinine measurement with calculation of estimated glomerular filtration rate > NRG Serum or plasma glucose measurement (mass/volume) 117 mg/dL 70-105 Serum or plasma calcium measurement (mass/volume) 8.3 mg/dL 8.5-10.1 Serum or plasma total bilirubin measurement (mass/volume) 0.4 mg/dL 0.1-1.0 Serum or plasma alkaline phosphatase measurement (enzymatic activity/volume) 97 U/L 40-136 Serum or plasma aspartate aminotransferase measurement (enzymatic activity/ volume) 19 U/L 5-34 Serum or plasma alanine aminotransferase measurement (enzymatic activity/volume ) 16 U/L 0-55 Serum or plasma protein measurement (mass/volume) 5.5 g/dL 6.4-8.2 Serum or plasma albumin measurement (mass/volume) 2.8 g/dL 3.2-4.5 Bacterial blood culture - 12/11/16 03:00 Bacterial blood culture NG NRG Bacterial blood culture - 12/11/16 03:00 Bacterial blood culture NG NRG Complete urinalysis with reflex to culture - 12/11/16 04:45 Urine color determination YELLOW NRG Urine clarity determination CLEAR NRG Urine pH measurement by test strip 5 5- 9 Specific gravity of urine by test strip 1.025 1.016-1.022 Urine protein assay by test strip, semi-quantitative 2+ NEGATIVE Urine glucose detection by automated test strip NEGATIVE NEGATIVE Erythrocytes detection in urine sediment by light microscopy NEGATIVE NEGATIVE Urine ketones detection by automated test strip NEGATIVE NEGATIVE Urine nitrite detection by test strip NEGATIVE NEGATIVE Urine total bilirubin detection by test strip NEGATIVE NEGATIVE Urine urobilinogen measurement by automated test strip (mass/volume) NORMAL NORMAL Urine leukocyte esterase detection by dipstick NEGATIVE NEGATIVE Automated urine sediment erythrocyte count by microscopy (number/high power field) NONE NRG Automated urine sediment leukocyte count by microscopy (number/high power field ) NONE NRG Bacteria detection in urine sediment by light microscopy NEGATIVE NRG Squamous epithelial cells detection in urine sediment by light microscopy RARE NRG Crystals detection in urine sediment by light microscopy NONE NRG Casts detection in urine sediment by light microscopy NONE NRG Mucus detection in urine sediment by light microscopy NEGATIVE NRG Complete urinalysis with reflex to culture NO NRG Encounters ACCT No. Visit Date/Time Discharge Status Pt. Type Provider Facility Loc./Unit Complaint [id number] 12/11/2016 02:35:00 2016 09:00:00 DIS Emergency CARIN GILLESPIE, JOSHUA Huggins [facility] ER FEVER 101.4 [id number] 12/09/2016 02:00:00 2016 17:29:00 DIS Emergency ALEXANDR GILLESPIE, BETZAIDA Irene [facility] ER FEVER 102.3 [id number] 12/07/2016 04:24:00 2016 06:50:00 DIS Emergency KATINA BROWNE DO [facility] ER ABD PAIN [id number] 11/07/2016 12:24:00 2016 12:49:00 DIS Emergency BRIAN JENSEN MD [facility] ER R SIDE SCIATIC NERVE PAIN [id number] 08/17/2016 10:26:00 2016 15:30:00 DIS Emergency MUKESH FLOREZ WOOD GOUGER [facility] ER ABD PAIN/KNOT [id number] 10/25/2013 07:53:00 2013 23:59:59 CLS Outpatient SHAVON HINKLE MD [facility] CARD ABN EKG,PALP [id number] 10/02/2013 13:52:00 2013 23:59:59 CLS Outpatient NORMA NG MD [facility] CARD CP,STERNEL PAIN [id number] 06/10/2015 11:41:00 Document Registration [id number] 03/30/2011 11:36:00 Document Registration
== END 2016-12-11 09:00 | disposition short-term general hospital (02) ==
LOC: EDUNIT# 02:33 → ER 02:35
DX: Z86.711 Personal history of pulmonary embolism; D70.9 Neutropenia, unspecified; Z85.05 Personal history of malignant neoplasm of liver; Z85.528 Personal history of other malignant neoplasm of kidney; Z90.49 Acquired absence of other specified parts of digestive tract; Z85.831 Personal history of malignant neoplasm of soft tissue; Z90.5 Acquired absence of kidney
CPT/HCPCS: 36415; 80053; 81000; 83605; 85025; 85610; 85730; 87040; 96361; 96365; 96367